=== PATIENT | male | born 1940 | race Caucasian/White ===

== ENCOUNTER 2020-06-22 06:00 | Outpatient (RCR) | payer MEDICARE, SELFPAY | END 2020-06-30 23:59 | disposition home or self-care (01) | LOC: TPT 06:00 | PROVIDERS: PCP Family Medicine; Visit Provider Family Medicine | DX: M53.3 Sacrococcygeal disorders, not elsewhere classified (principal) | CPT/HCPCS: 97161 ==

== ENCOUNTER 2020-06-27 09:42 | Outpatient (CLI) | payer MEDICARE, SELFPAY ==
--- NOTE | 2020-06-27 09:50 | USCV_ITS ---
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 Normal resting TBIs bilaterally CONCLUSIONS No significant arterial obstruction based on the above findings Dr Bob Caballero MD [facility] (Electronically Signed) Final Date: 28 June 2020 09:23 S
== END 2020-06-27 09:43 | disposition home or self-care (01) ==
PROVIDERS: PCP Family Medicine; Visit Provider Family Medicine
DX: I73.9 Peripheral vascular disease, unspecified (principal)
CPT/HCPCS: 93922

== ENCOUNTER 2020-07-01 06:00 | Outpatient (RCR) | payer MEDICARE, SELFPAY | END 2020-07-31 23:59 | disposition home or self-care (01) | LOC: TPT 06:00 | PROVIDERS: PCP Family Medicine; Visit Provider Family Medicine | DX: M53.3 Sacrococcygeal disorders, not elsewhere classified (principal) | CPT/HCPCS: 97110 ==

== ENCOUNTER 2020-07-12 12:29 | Outpatient (CLI) | payer MEDICARE, SELFPAY ==
--- NOTE | 2020-07-12 12:44 | XR_ITS ---
WS: [id number] LATERAL LUMBAR SPINE: 3 view. Lateral radiographs are performed in upright neutral, flexion and extension to the patient's toleranc e. HISTORY: POST LAMINECTOMY SYNDROME COMPARISON: 03/29/2015 Status post prior lumbar fusion from L3 to L5. No hardware fractures. Complete obliteration of the di sc at L3-4 and L4-5. The remaining discs are significantly narrowed with large osteophytes extending anterior. L2 retrolisthesis by 5 mm. No instability. Mild anterior wedging of T12. XR/XR lumbar spine f/e only [id number] IMPRESSION: 1. No lumbar spine instability. 2. Posterior lumbar fusion from L3 to L5 similar to prior studies. 3. Significant degenerative changes throughout the lumbar spine as described a bruce. Overall significant progression since 2014.
== END 2020-07-12 12:30 | disposition home or self-care (01) ==
PROVIDERS: PCP Family Medicine; Visit Provider Nurse Practitioner
DX: M96.1 Postlaminectomy syndrome, not elsewhere classified (principal); M43.26 Fusion of spine, lumbar region
CPT/HCPCS: 72120

== ENCOUNTER 2023-03-25 06:00 | Outpatient (RCR) | payer MEDICARE, SELFPAY | END 2023-03-30 23:59 | disposition home or self-care (01) | LOC: APT 06:00 | PROVIDERS: Visit Provider Family Medicine | DX: M54.50 Low back pain, unspecified (principal); G89.29 Other chronic pain | CPT/HCPCS: 97110; 97112; 97162; 97530 ==

== ENCOUNTER 2023-03-31 06:00 | Outpatient (RCR) | payer MEDICARE, SELFPAY | END 2023-04-30 23:59 | disposition home or self-care (01) | LOC: APT 06:00 | PROVIDERS: Visit Provider Family Medicine | DX: M54.50 Low back pain, unspecified (principal); G89.29 Other chronic pain | CPT/HCPCS: 97110; 97112; 97530 ==

== ENCOUNTER 2023-04-28 14:23 | Inpatient (IN) | payer MEDICARE, SELFPAY ==
[2023-04-28] VITALS (7 sets, daily range): BP systolic 100–138; BP diastolic 51–77; PULSE 57–115; RESP 15–19; TEMP 36.9–37.4; O2SAT 91–98; BMI 24.3
--- NOTE | 2023-04-28 15:05 | XRR_ITS ---
PROCEDURE INFORMATION: Exam: XR Chest Exam date and time: 04/28/2023 3:24 PM Age: 82 years old Clinical indication: Cough TECHNIQUE: Imaging protocol: Radiologic exam of the chest. Views: 1 view. COMPARISON: CR XR cervical spine 4-5V [id number] 06/22/2021 11:12 AM FINDINGS: Lungs: Unremarkable. No consolidation. Pleural spaces: Unremarkable. No pleural effusion. No pneumothorax. Heart/Mediastinum: Unremarkable. No cardiomegaly. Bones/joints: ACDF hardware noted in the lower cervical spine. [id number] dextroscoliosis of the thoracic spine. XR/XR chest 1V portable [id number] IMPRESSION: No acute findings.
--- NOTE | 2023-04-28 15:06 | ECG_ITS ---
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 Measurements Intervals [place] Rate: 111 P: 51 [place]: 161 QRS: 47 QRSD: 106 T: 60 QT: 314 QTc: 428 Interpretive Statements SINUS TACHYCARDIA WITH FREQUENT VENTRICULAR PREMATURE COMPLEXES IN A BIGEMINAL PATTERN POSSIBLE LEFT ATRIAL ENLARGEMENT [-0.1mV P-WAVE IN V1/V2] MODERATE T-WAVE ABNORMALITY, CONSIDER ANTEROLATERAL ISCHEMIA [-0.1+ mV T-WAVE IN V3-V6] No previous ECG available for comparison Electronically Signed On 04-29-2023 7:35:47 CDT by Lokesh Bush M.D. [id number]
--- NOTE | 2023-04-28 15:07 | ED_ITS ---
HPI - Fall General: Chief Complaint: Fall Stated Complaint: fall Time Seen by Provider: 04/28/23 14:35 Source: patient and family Limitations: no limitations History of Present Illness: This patient is here in the emergency room because he has felt weak over the past 3 to 4 days. He got out of bed yesterday and felt too weak and, collapsed to the floor without any injury. He had a similar episode today where he was got out of bed and was walking with his holding onto him and felt weak and she let him slowly collapsed to the floor without any injury. He denied any prodrome to include chest pain lightheadedness etc. He is states that he started feeling this way approximately Saturday or thereab where he just had decreased appetite malaise fitful sleep at some time and then increasing sleep at other times. He has not had a temperature over 99. He has had a nonproductive cough as well. No known association with anyone who has had infectious disease. He has not had influenza vaccine this year to date. His spouse had COVID in March but is currently asymptomatic. He normally does not have any cardiopulmonary disease. He has osteoarthritis as well as had cervical and lumbar fusions in the past. Place fall occurred: home Associated symptoms-after fall: Denies abdominal pain, chest pain, headache(s) or neck pain Review of Systems Const: Reports: body aches, change in appetite, malaise and change in sleep pattern; Denies: fever(s) Eyes: Denies: change in vision ENMT: Denies: throat pain, odynophagia, nasal discharge or nasal congestion Card: Denies: chest pain, palpitations, syncope or pre-syncope Resp: Reports: non-productive cough; Denies: wheezing GI: Reports: vomiting; Denies: abdominal pain or diarrhea : Denies: flank pain, difficulty urinating, dysuria or urinary frequency Musc: Denies: neck pain, back pain, extremity pain or extremity swelling Skin/Breast: Denies: rash Neuro: Denies: headache(s), numbness in extremities or weakness in extremities Physical Exam Narrative: EXAM NARRATIVE: He is alert makes good eye contact. Speech is fluent and goal-directed. Const: COMMON NORMALS: no acute distress, average body habitus, patient oriented x3, healthy appearing and alert GENERAL APPEARANCE: cooperative HENMT: COMMON NORMALS: normocephalic, Normal nasal mucous membranes and turbinates present, moist oral mucous membranes and oropharynx normal HEAD & SCALP: normal to inspection and normocephalic FACE & SINUS: normal facial exam NOSE: Normal nasal mucous membranes and turbinates present Eye: COMMON NORMALS: Equal, round and reactive pupils present, EOMs intact bilaterally and conjunctivae normal CONJUNCTIVA: Yes conjunctivae normal PUPIL: Yes Equal, round and reactive pupils present Neck/C-Spine: COMMON NORMALS: full ROM, no lymphadenopathy and no JVD Chest: COMMONS NORMALS: normal inspection of the chest Resp: COMMON NORMALS: normal respiratory effort, No retractions, No use of accessory muscles and clear to auscultation bilaterally AUSCULTATION: clear to auscultation bilaterally Cardio: COMMON NORMALS: no JVD, regular rate, regular rhythm, No murmurs p resent (Cardio) and Peripheral pulses 2+ throughout RATE: regular rate RHYTHM: regular rhythm PERIPHERAL PULSES: Peripheral pulses 2+ throughout GI: COMMON NORMALS: Normal to inspection, nondistended, normoactive bowel sounds present, Soft to palpation and non-tender PALPATION: Yes Soft to palpation : COMMON NORMALS: Yes no CVA tenderness BLADDER/KIDNEY EXAM: Yes no CVA tenderness Back/Pelvis: COMMON NORMALS: no CVA tenderness, thoracic and lumbar spine normal to inspection, no thoracic nor lumbar tenderness, thoraco-lumbar ROM normal and straight leg raise negative bilaterally Extremity: COMMON NORMALS: normal to inspection, full ROM, no joint enlargement, no clubbing, cyanosis or edema, no calf tenderness and no pedal edema Neuro: COMMON NORMALS: patient oriented x3, moves all extremities, no focal motor deficits and no sensory deficits noted SENSORIUM/ORIENTATION: Yes alert CRANIAL NERVES: Yes CN normal except as noted Psych: COMMON NORMALS: mental status grossly normal Skin: COMMON NORMALS: no rashes or lesions noted, no wounds and turgor normal GENERAL SKIN EXAM: no rashes or lesions noted and turgor normal Course Reevaluation(s): Reevaluation #1: Patient still does not endorse any ongoing chest pain or other symptoms other than that which were obtained at his intake evaluation. I informed both he and his spouse of his troponin elevation and the need for additional evaluation and inpatient care. They voiced understanding. Time: 15:56 Consultations: Consultation #1: Consulted with Dr. Pool regarding his presentation and need for admission. He requested a D-dimer but agreed with plan for admission. Time: 15:56 Vital Signs: Vital signs: Vital Signs Temperature 99.4 F 04/28/23 14:27 Pulse Rate 94 04/28/23 16:00 Respiratory Rate 15 04/28/23 14:27 Blood Pressure 127/71 04/28/23 16:00 Pulse Oximetry 98 04/28/23 16:00 Oxygen Delivery Me thod Room Air 04/28/23 14:27 MDM - Fall Medical Decision Making 82-year-old gentleman who presented to the emergency department with nonproductive cough history, generalized weakness and collapsing on a couple of separate occasions without injury. His had not been recently ill but did have COVID in March of this year. He has not had travel or known exposure to infectious disease. No significant cardiopulmonary history. Does have a his tory of degenerative spine disease. Because of his generalized malaise, nonproductive cough and generalized weakness work-up was undertaken to include evaluation for possible viral illness such as COVID and influenza, pneumonia, other potential contributing factors to a generalized weakness. Initial troponin was noted to be elevated in the 700 range with EKG that did not show acute changes but did show frequent unifocal PVCs. Chest x-ray did not reveal pneumonia and the initial remainder of his laboratories are reassuring and that he had no leukocytosis significant anemia abnormal renal function etc. The patient certainly has evidence of myocardial injury possibly from nonocclusive myocardial infarction. Less likely that he has a thromboembolic event as an etiology to his current presentation but a D-dimer was obtained and is pending at the time of this dictation. Consultation with hospitalist was obtained for admission. Lab Data I reviewed the patient's lab results. 04/28/23 15:14 04/28/23 15:14 Radiology Impressions Chest X-Ray 04/28/23 15:05 IMPRESSION: No acute findings. Laboratory Results WBC 8.87 10^3/uL (3.29-11.43) 04/28/23 15:14 RBC 4.25 10^6/uL (3.85-5.65) 04/28/23 15:14 Hgb 12.60 g/dL (11.27-16.99) 04/28/23 15:14 Hct 36.9 % (37-53) L 04/28/23 15:14 MCV 86.8 fl (82-101) 04/28/23 15:14 MCH 29.6 pg (27-33) 04/28/23 15:14 MCHC 34.1 g/dL (30-55) 04/28/23 15:14 RDW 15.0 % (12.1-15.1) 04/28/23 15:14 Plt Count 128 10^3/cmm (157-399) L 04/28/23 15:14 MPV 10.9 fL (7.4-10.4) H 04/28/23 15:14 Neut % (Auto) 83.7 % 04/28/23 15:14 Lymph % (Auto) 5.2 % 04/28/23 15:14 [place] % (Auto) 10.5 % 04/28/23 15:14 Eos % (Auto) 0.1 % 04/28/23 15:14 Baso % (Auto) 0.2 % 04/28/23 15:14 Neut # (Auto) 7.42 10^3/uL (1.8-7.7) 04/28/23 15:14 Lymph # (Auto) 0.5 10^3/uL (0.8-4.8) L 04/28/23 15:14 [place] # (Auto) 0.9 10^3/uL (0.2-0.9) 04/28/23 15:14 Eos # (Auto) 0.0 10^3/uL (0.0-0.8) 04/28/23 15:14 Baso # (Auto) 0.0 10^3/uL (0.0-0.1) 04/28/23 15:14 Nucleated RBC % (auto) 0 % 04/28/23 15:14 Nucleated RBCs # 0.0 /100WBC 04/28/23 15:14 D-Dimer 3.55 ug/mLFEU (0-0.59) H 04/28/23 15:14 Sodium 130 mmol/L (136-145) L 04/28/23 15:14 Potassium 3.9 mmol/L (3.5-5.1) 04/28/23 15:14 Chloride 100 mmol/L (98-107) 04/28/23 15:14 Carbon Dioxide 20 mmol/L (22-29) L 04/28/23 15:14 Anion Gap 13.9 (5-19) 04/28/23 15:14 BUN 28 mg/dL (8-23) H 04/28/23 15:14 Creatinine 1.3 mg/dL (0.7-1.2) H 04/28/23 15:14 GFR Calculation Not Reportable 04/28/23 15:14 Glucose 154 mg/dL (65-115) H 04/28/23 15:14 Calculated Osmolality 279 mOsm/kg (285-295) L 04/28/23 15:14 Lactic Acid 1.2 mmol/L (0.5-2.2) 04/28/23 15:14 Calcium 8.8 mg/dL (8.5-10.5) 04/28/23 15:14 Total Bilirubin 1.5 mg/dL (0.15-1.2) H 04/28/23 15:14 AST 64 U/L (0-40) H 04/28/23 15:14 ALT 55 U/L (0-41) H 04/28/23 15:14 Alkaline Phosphatase 151 U/L (40-130) H 04/28/23 15:14 Troponin T Baseline 753 ng/L (0-15) H* 04/28/23 15:14 Total Protein 6.0 g/dL (6.6-8.7) L 04/28/23 15:14 Albumin 3.6 g/dL (3.5-5.2) 04/28/23 15:14 Globulin 2.4 g/dL (1.3-4.6) 04/28/23 15:14 Urine Color Dark yellow (Yellow) 04/28/23 15:52 Urine Appearance Hazy (CLEAR) A 04/28/23 15:52 Urine pH 5 (5-7) 04/28/23 15:52 Ur Specific [place] 1.015 (1.005-1.030) 04/28/23 15:52 Urine Protein 1+ (Negative) H 04/28/23 15:52 Urine Glucose (UA) Norm (Normal) 04/28/23 15:52 Urine Ketones 1+ (Negative) H 04/28/23 15:52 Urine Blood 3+ (Negative) H 04/28/23 15:52 Urine Nitrate Negative (Negative) 04/28/23 15:52 Urine Bilirubin 1+ (Negative) H 04/28/23 15:52 Urine Urobilinogen 4 mg/dL (Negative) H 04/28/23 15:52 Ur Leukocyte Esterase 1+ (Negative) H 04/28/23 15:52 Urine RBC 0-4 /hpf (0-2) H 04/28/23 15:52 Urine WBC 0-4 /hpf (0-5) H 04/28/23 15:52 Ur Squamous Epith Cells None /hpf (0-5) 04/28/23 15:52 Amorphous Sediment 1+ /hpf 04/28/23 15:52 Urine Bacteria 1+ /hpf (NONE) H 04/28/23 15:52 Coarse Granular Casts 0-4 /lpf H 04/28/23 15:52 Influenza Type A Ag negative (Negative) 04/28/23 15:25 Influenza Type B Ag negative (Negative) 04/28/23 15:25 SARS-CoV-2 Ag (Rapid) Negative (Negative) 04/28/23 15:25 All radiology interpretation(s) finalized by discharge EKG Data EKG 1: I personally reviewed and interpreted this EKG as follows: Interpretation: Contemporaneous review of EKG reveals a ventricular rate of 111 bpm. Has normal CA interval, QRS duration, corrected QT interval. Leftward axis. Underlying rhythm appears to be sinus rhythm with frequent unifocal PVCs noted. Discharge Plan Discharge Patient Disposition: Admitted As Inpatient Clinical Impression: Myocardial injury, Generalized weakness Condition: Stable Coding Level of Care Code ED Welt Edge Rounder for Jeff Rios
[2023-04-28] MEDS: sodium chloride 0.9% 1,000 ML 999 ML IV (15:10)
[2023-04-28 15:23] LABS: Basophils % 0.2 %; Eosinophils % 0.1 %; Hematocrit 36.9 % (37-53); Lymphocytes # 0.5 10^3/uL (0.8-4.8); Lymphocytes % 5.2 %; Mean Corpuscular HGB Conc 34.1 g/dL (30-55); Mean Corpuscular Hemoglobin 29.6 pg (27-33); Mean Corpuscular Volume 86.8 fl (82-101); Mean Platelet Volume 10.9 fL (7.4-10.4); Monocytes # 0.9 10^3/uL (0.2-0.9); Monocytes % 10.5 %; Neutrophils # 7.42 10^3/uL (1.8-7.7); Neutrophils % 83.7 %; Nucleated Red Blood Cells % 0 %; Platelet Count 128 10^3/cmm (157-399); Red Blood Count 4.25 10^6/uL (3.85-5.65); White Blood Count 8.87 10^3/uL (3.29-11.43)
[2023-04-28 15:45] LABS: Lactic Sepsis W/Reflex 1.2 mmol/L (0.5-2.2)
[2023-04-28 15:46] LABS: Alanine Aminotransferase 55 U/L (0-41); Albumin Level 3.6 g/dL (3.5-5.2); Alkaline Phosphatase 151 U/L (40-130); Anion Gap 13.9 (5-19); Aspartate Amino Transferase 64 U/L (0-40); Blood Urea Nitrogen 28 mg/dL (8-23); Calcium 8.8 mg/dL (8.5-10.5); Carbon Dioxide 20 mmol/L (22-29); Chloride 100 mmol/L (98-107); Globulin 2.4 g/dL (1.3-4.6); Glucose 154 mg/dL (65-115); Osmolality Calculated 279 mOsm/kg (285-295); Potassium 3.9 mmol/L (3.5-5.1); Sodium 130 mmol/L (136-145); Total Bilirubin 1.5 mg/dL (0.15-1.2)
[2023-04-28 15:48] LABS: Troponin(5th) Baseline 753 ng/L (0-15)
[2023-04-28 15:52] LABS: Influenza A by IFA negative (Negative); Influenza B by IFA negative (Negative)
--- NOTE | 2023-04-28 15:54 | P.HP_ITS ---
Providers/Chief Complaint Chief Complaint: fall History of Present Illness Ursula Brown is a 82 year old male with history of depression, GERD, back surgery, uses a walker because of lower extremity weakness, presented today after sustaining a fall because of lower extremity weakness does not endorse any stroke related symptoms, patient is stating that he has not experienced any chest pain however mild discomfort was noticed around subcostal region and it was associate with nausea, no history of coronary disease CHF or [place], lives with his , non-smoker nonalcoholic. Takes lisinopril and amlodipine for blood pressure. In the ER he has been diagnosed with non-STEMI, no active chest pain, D-dimer extremely high requested CTA chest and venous Doppler along echo started ACS protocol. Review of Systems Const: Reports: chills, body aches and fatigue Eyes: Denies: change in vision ENMT: Denies: throat pain Card: Reports: pre-syncope; Denies: chest pain Resp: Denies: dyspnea GI: Denies: abdominal pain : Denies: flank pain or urinary frequency Musc: Denies: neck pain Skin/Breast: Denies: rash Neuro: Reports: weakness in extremities; Denies: headache(s) Medications/Allergies Home Medications Medication Instructions Recorded Confirmed Last Taken Type amlodipine 10 mg tablet 10 mg PO QAM 04/28/23 04/28/23 Unknown History azelastine 137 mcg (0.1 %) nasal 1 spray intranasal BID PRN Allergy 04/28/23 04/28/23 Unknown History spray aerosol Symptoms diphenhydramine 25 2 tab PO BEDTIME 04/28/23 04/28/23 Unknown History mg-acetaminophen 500 mg tablet (Tylenol PM Extra Strength) fluticasone propionate 50 2 spray intranasal DAILY PRN 04/28/23 04/28/23 Unknown History mcg/actuation nasal Allergy Symptoms spray,suspension lisinopril 40 mg tablet 40 mg PO QAM 04/28/23 04/28/23 Unknown History pantoprazole 40 mg tablet,delayed 40 mg PO BID 04/28/23 04/28/23 Unknown History release sertraline 100 mg tablet 150 mg PO BID 04/28/23 04/28/23 Unknown History Allergies Allergy/AdvReac Type Severity Reaction Status Date / Time No Known Allergies Allergy Verified 04/28/23 15:09 PFSH Acute PFSH: Medical History Depressed GERD (gastroesophageal reflux disease) HTN (hypertension) Surgical History History of back surgery Social History (Updated 04/28/23 @ 16:46 by Arya Oliveira MD) Smoking and tobacco/nicotine status: never used tobacco/nicotine Alcohol intake: never Substance/Drug Use: never Vitals/I&O/Wt Last Vital Signs Temp 99.4 F 04/28/23 14:27 Pulse 59 L 04/28/23 14:27 Resp 15 04/28/23 14:27 BP 122/60 04/28/23 14:27 Pulse Ox 95 04/28/23 14:27 O2 Del Method Room Air 04/28/23 14:27 Weight last 48 hrs Weight 77.111 kg Physical Exam Narrative: male Well-built GCS 15 No active chest pain Currently on room air Pleasant cooperative GCS 15 Nonfocal neuro exam No active wheezing or crackles S1, S2 Mild signs of fluid overload Data 04/28/23 15:14 04/28/23 15:14 A&P Assessment and plan (1) NSTEMI (non-ST elevated myocardial infarction): (2) Generalized weakness: (3) D-dimer, elevated: Plan Non-STEMI Start ACS protocol No active chest pain EKG without ischemic infarctive changes We will request a stress tomorrow In case patient develops any symptoms of chest pain stress test should be canceled We will request echo Abnormal D-dimer rule out PE/thromboembolic phenomenon request venous Doppler and CTA chest ALEXIS: Clinically patient looks euvolemic Hold lisinopril Hypertension: Continue amlodipine Hyponatremia with hypervolemia, will request echo Abnormal transaminases like related to congestive hepatopathy, BMP requested Request TSH and B12 because of generalized weakness Full code Cardiac diet N.p.o. after midnight Currently doing well on room air Attestations Medical Necessity Statement*: More than 2 midnights anticipated Diagnoses NSTEMI (non-ST elevated myocardial infarction) I21.4 Generalized weakness R53.1 D-dimer, elevated R79.89
[2023-04-28 16:04] LABS: Blood Urine 3+ (Negative); Glucose Urine UA Norm (Normal); Ketones Urine 1+ (Negative); Nitrate Urine Negative (Negative); Protein Urine 1+ (Negative); Specific Gravity, Urine 1.015 (1.005-1.030); Urine Appearance Hazy (CLEAR); Urine Color Dark Yellow (Yellow); pH Urine 5 (5-7)
[2023-04-28 16:05] LABS: Add Urine Culture? Yes; Add Urine Microscopic? YES; Amorphous Sediment Urine 1+ /hpf; Bacteria Urine 1+ /hpf; Bilirubin Urine 1+ (Negative); Coarse Granular Casts Urine 0-4 /lpf; Leukocyte Esterase Urine 1+ (Negative); RBC Urine 0-4 /hpf (0-2); Urobilinogen Urine 4 mg/dL (Negative); WBC Urine 0-4 /hpf (0-5)
[2023-04-28] MEDS: clopidogrel 300 mg Tablet PO (16:11)
[2023-04-28] MEDS: aspirin 325 mg EC Tablet PO (16:11)
[2023-04-28 16:12] LABS: SARS Covid-2 Antigen Negative (Negative)
[2023-04-28 16:27] LABS: D Dimer 3.55 ug/mLFEU (0-0.59)
--- NOTE | 2023-04-28 16:42 | PC.PHAR ---
pt states he takes care of his own medications-pt and pts states they dont remember if pt took his meds today or not
--- NOTE | 2023-04-28 16:43 | CTR_ITS ---
PROCEDURE INFORMATION: Exam: CTA Chest With Contrast Exam date and time: 04/28/2023 4:53 PM Age: 82 years old Clinical indication: Pain; Chest pressure; Additional info: Chest pain TECHNIQUE: Imaging protocol: Computed tomographic angiography of the chest with contrast. Exam focused on the arteries. 3D rendering (Not supervised by radiologist): MIP and/or 3D reconstructed images were created by the technologist. Radiation optimization: All CT scans at this facility use at least one of these dose optimization techniques: automated exposure control; mA and/or kV adjustment per patient size (includes targeted exams where dose is matched to clinical indication); or iterative reconstruction. Contrast material: OMNI 350; Contrast volume: 86 ml; Contrast route: INTRAVENOUS (IV); REPORTING DATA: Count of CT and Cardiac NM exams in prior 12 months: This patient has received 0 known CTs and 0 known cardiac nuclear medicine studies in the 12 months prior to the current study. COMPARISON: CR (CHEST, ) 04/28/2023 3:24 PM RADIATION DOSE METRICS: Total DLP (mGy-cm): 409.01 FINDINGS: Limitations: Study is somewhat limited by patient respiratory motion. Pulmonary arteries: Allowing for motion artifact and streak artifact at the lung bases there is no evidence of pulmonary embolism. Aorta: There is no thoracic aortic aneurysm or dissection. Lungs: There is mild dependent atelectasis at both lung bases. There is a somewhat ill-defined 13 x 17 x 9 mm nodular opacity left upper lobe seen on image number 9 series 5.For both low risk and high risk patients, consider CT Chest at 3 months, PET/CT, or biopsy. (Reference: Mildred). There is mild dependent atelectasis in both lungs. Pleural spaces: Unremarkable. No pneumothorax. No pleural effusion. Heart: Unremarkable. No cardiomegaly. No pericardial effusion. Coronary arteries: There is severe atherosclerotic calcification of the coronary arteries. Mediastinal space: There is moderate thickening of the esophagus throughout its length which may represent some esophagitis. Please correlate clinically. Lymph nodes: There are calcified right hilar lymph nodes in keeping with old granulomatous disease. Bones/joints: The thoracic spine demonstrates moderate degenerative changes at multiple levels. There is no evidence of acute fracture. Soft tissues: Unremarkable. CT/CT angio chest PE protcl [id number] IMPRESSION: 1. Indeterminate left upper lobe pulmonary nodule. Further evaluation or follow-up according to Fleischner society guidelines recommended. 2. No evidence of pulmonary embolism. 3. Severe coronary artery calcifications 4. Diffuse esophageal thickening. Please correlate for esophagitis or gastroesophageal reflux. REFERENCES: Mildred Thompson et al. Guidelines for Management of Incidental Pulmonary Nodules Detected on CT Images: From the Fleischner Society 2017. Radiology. 2017;284(1):228-243.
--- NOTE | 2023-04-28 16:44 | USR_ITS ---
PROCEDURE INFORMATION: Exam: US Duplex Lower Extremity Veins, Bilateral Exam date and time: 04/28/2023 6:35 PM Age: 82 years old Clinical indication: Edema, localized; Lower extremity, bilateral; Additional info: Swelling TECHNIQUE: Imaging protocol: Real-time duplex ultrasound of the bilateral extremities with 2-D cole scale, color Doppler flow and spectral waveform analysis including responses to compression and other maneuvers (when performed) with image documentation. Complete exam focused on the lower extremity veins. COMPARISON: No relevant prior studies available. FINDINGS: Right deep veins: Unremarkable. The common femoral, femoral, proximal profunda femoral and popliteal veins are patent without thrombus. Normal Doppler waveforms. Normal compressibility and/or augmentation response. Left deep veins: Unremarkable. The common femoral, femoral, proximal profunda femoral and popliteal veins are patent without thrombus. Normal Doppler waveforms. Normal compressibility and/or augmentation response. Superficial veins: Bilateral saphenofemoral junctions are patent without thrombus. Soft tissues: Unremarkable. US/[place] [id number] IMPRESSION: No evidence of deep vein thrombosis.
[2023-04-28] MEDS: iohexol 350 mg/mL 500 mL Btl (per mL) IV (16:58)
[2023-04-28 17:18] LABS: Vitamin B12 276 pg/mL (232-1245)
[2023-04-28 17:48] LABS: Troponin 5 2HR 710.5 ng/L (0-15)
--- NOTE | 2023-04-28 18:33 | ECG_ITS ---
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 Interpretive Statements NAME OF STUDY: LEXISCAN SESTAMIBI STRESS TEST INDICATION: [Unstable Angina, ] Procedure: At the baseline, the blood pressure was 96/55 mmHg with a heart rate of 99 bpm. The electrocardiogram showed normal sinus rhythm, with incomplete right bundle branch block. The Lexiscan was infused over a period of 20 seconds. A total of 0.4 mg of Lexiscan was infused. The stress phase was continued for a total of 5 minutes. Heart rate was at the end of stress phase was 103 bpm and a blood pressure of 104/51 mmHg. The EKG at the peak infusion revealed normal sinus rhythm with no significant ST-T wave changes. Sestamibi was injected 20 seconds after the Lexiscan infusion. Blood pressure at the end of recovery phase was 109/52 mmHg with a heart rate of 101 with bpm. Conclusion: 1. Normal EKG response to Lexiscan infusion 2. No Lexiscan induced chest pain or cardiac arrhythmia. 3. Normal blood pressure and heart rate response. 4. Sestamibi/sestamibi perfusion scan pending; see separate report. Electronically Signed On 05-04-2023 20:36:33 CDT by Lokesh Bush M.D. [email or web address])/store/[id number]
[2023-04-28 19:26] LABS: Thyroid Stimulating Hormone 0.99 uIU/mL (0.27-4.20)
[2023-04-28] MEDS: sertraline 100 mg Tablet 150 MG PO (19:44)
[2023-04-28] MEDS: enoxaparin 40 mg/0.4 mL Syringe 80 MG SUBCUT (19:44)
[2023-04-28] MEDS: pantoprazole DR 40 mg Tablet PO (19:44)
[2023-04-28 20:27] LABS: Estmated Average Glucose 131; Hemoglobin A1C 6.2 % (4.0-6.0)
--- NOTE | 2023-04-28 20:40 | ECG_ITS ---
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 Measurements Intervals [place] Rate: 98 P: 6 [place]: 176 QRS: 52 QRSD: 110 T: 0 QT: 383 QTc: 490 Interpretive Statements SINUS RHYTHM LOW QRS VOLTAGE IN EXTREMITY LEADS [QRS DEFLECTION < 0.5 mV IN LIMB LEADS] MODERATE T-WAVE ABNORMALITY, CONSIDER ANTEROLATERAL ISCHEMIA [-0.1+ mV T-WAVE IN V3-V6] Compared to ECG 04/28/2023 15:08:33 Low QRS voltage now present Sinus tachycardia no longer present Ventricular premature complex(es) no longer present T-wave abnormality still present Possible ischemia still present Electronically Signed On 04-29-2023 7:36:11 CDT by Lokesh Bush M.D. [id number]
[2023-04-28 22:16] LABS: Troponin 5 6HR 744.1 ng/L (0-15); Troponin 5 6HR Delta -8.9 ng/L (0-12)
[2023-04-29] VITALS (8 sets, daily range): BP systolic 107–146; BP diastolic 52–72; PULSE 73–108; RESP 16–20; TEMP 36.3–37.6; O2SAT 92–95
[2023-04-29 05:22] LABS: Basophils % 0.3 %; Eosinophils % 0.3 %; Hematocrit 33.8 % (37-53); Lymphocytes # 0.7 10^3/uL (0.8-4.8); Lymphocytes % 9.3 %; Mean Corpuscular HGB Conc 33.7 g/dL (30-55); Mean Corpuscular Hemoglobin 29.5 pg (27-33); Mean Corpuscular Volume 87.3 fl (82-101); Mean Platelet Volume 11.5 fL (7.4-10.4); Monocytes # 0.7 10^3/uL (0.2-0.9); Monocytes % 9.8 %; Neutrophils # 5.85 10^3/uL (1.8-7.7); Neutrophils % 79.6 %; Nucleated Red Blood Cells % 0 %; Platelet Count 121 10^3/cmm (157-399); Red Blood Count 3.87 10^6/uL (3.85-5.65); Red Cell Distribution Width 15.1 % (12.1-15.1); White Blood Count 7.34 10^3/uL (3.29-11.43)
[2023-04-29 05:53] LABS: Blood Urea Nitrogen 23 mg/dL (8-23); C Reactive Protein 229.8 mg/L (0.0-4.9); Calcium 8.4 mg/dL (8.5-10.5); Carbon Dioxide 18 mmol/L (22-29); Chloride 102 mmol/L (98-107); Glucose 94 mg/dL (65-115); Osmolality Calculated 279 mOsm/kg (285-295); Phosphorus 2.7 mg/dL (2.5-4.5); Sodium 133 mmol/L (136-145)
[2023-04-29 05:59] LABS: Anion Gap 16.7 (5-19); Potassium 3.7 mmol/L (3.5-5.1)
--- NOTE | 2023-04-29 06:00 | USCV_ITS ---
Ursula Brown Age: 82 Gender: M : 1940 Exam Date: 04/29/2023 19:16 Ordering Phys: Arya Oliveira MD Technologist: STEFANY Exam Location: [facility] [place] Indication: unstable angina. No history of cardiac intervention per patient. BP: 114 / 70 HR: 104 Rhythm: Sinus Technical Quality: Adequate MEASUREMENTS (Male / Female) Normal Values 2D ECHO LV Diastolic Diameter PLAX 3.8 cm 4.2 - 5.9 / 3.9 - 5.3 cm LV Systolic Diameter PLAX 2.4 cm IVS Diastolic Thickness 1.8 cm 0.6 - 1.0 / 0.6 - 0.9 cm IVS Systolic Thickness 2.0 cm LVPW Diastolic Thickness 1.8 cm 0.6 - 1.0 / 0.6 - 0.9 cm LVPW Systolic Thickness 1.9 cm LVOT Diameter 2.2 cm LV Ejection Fraction 2D Teich 67.8 % LV Ejection Fraction MOD 2C 30.9 % LV Ejection Fraction 2C AL 30.6 % LA Diameter 3.5 cm LA Width 3.7 cm LA Height 4.0 cm RA Width 3.2 cm RA Height 3.2 cm Aorta at Sinotubular Diameter 3.1 cm IVC Diameter 2.0 cm M-MODE Aortic Annulus Diameter 3.3 cm LA Ao Ratio MM 1.1 MV E Point Septal Separation 1.1 cm DOPPLER AV Peak Velocity 122.0 cm/s LVOT Peak Velocity 63.0 cm/s AV Area Cont Eq vti 1.6 cm squared AV Area Cont Eq pk 2.0 cm squared MV Peak Velocity 125.0 cm/s MV Area PHT 5.6 cm squared Mitral E to A Ratio 0.8 MV E' Velocity 53.0 cm/s Mitral E to MV E' Ratio 11.8 Mitral E to LV E' Lateral Ratio 12.6 Mitral E to LV E' Septal Ratio 11.3 TR Peak Velocity 262.0 cm/s TR Peak Gradient 27.5 mmHg TV Peak E Velocity 47.0 cm/s Right Atrial Pressure 5.0 mmHg Pulmonary Artery Systolic Pressu 32.5 mmHg PV Peak Velocity 84.0 cm/s RV Acceleration Time 0.1 s RV Ejection Time 0.3 s RV AcT/ET 0.4 FINDINGS Left Ventricle Left ventricle is normal in size. LV systolic function is severely reduced with EF of 25 to 30%. Akinesis of apical, mid to apical anteroseptal and mid to apical inferoseptal portillo. Possible apical thromus. Grade 1 diastolic dysfunction Right Ventricle Grossly normal Right Atrium Normal in size Left Atrium Normal in size Mitral Valve Grossly normal. Mild mitral regurgitation Aortic Valve Aortic valve is thickened. No significant stenosis or regurgitation. Tricuspid Valve Insufficient TR jet to calculate RVSP Pulmonic Valve Not well visualized. Trace pulmonic regurgitation. Pericardium Normal Aorta Normal in size IVC Appears to be normal CONCLUSIONS Systolic function is severely reduced with EF of 25 to 30%. Above-mentioned regional wall motion abnormalities. Possible apical thrombus seen. Grade 1 diastolic dysfunction. Mild mitral regurgitation. Trace pulmonic regurgitation. No comparison studies are available. Lokesh Bush MD (Electronically Signed) Final Date: 30 April 2023 09:22 S
[2023-04-29] MEDS: amlodipine 10 mg Tablet PO (06:24)
[2023-04-29] MEDS: enoxaparin 40 mg/0.4 mL Syringe 80 MG SUBCUT ×2 (06:24→17:10)
[2023-04-29] MEDS: clopidogrel 75 mg Tablet PO (10:00)
[2023-04-29] MEDS: aspirin 81 mg EC Tablet PO (10:00)
[2023-04-29] MEDS: pantoprazole DR 40 mg Tablet PO ×2 (10:00→17:11)
[2023-04-29] MEDS: sennosides-docusate Tablet 1 TAB PO (10:01)
[2023-04-29] MEDS: sertraline 100 mg Tablet 150 MG PO ×2 (10:01→17:11)
[2023-04-29] MEDS: FUROsemide 10 mg/mL SDV 2mL 20 MG IVP (10:01)
--- NOTE | 2023-04-29 11:21 | P.PN_ITS ---
Subjective Subjective: No active chest pain PT evaluation pending B12 low normal D-dimer 3.5 No sign of DVT or PE Stress test report pending TSH normal B12 low normal finding discussed with the patient Vitals/I&O/Wt Last Vital Signs Temp 99.7 F H 04/29/23 10:57 Pulse 108 H 04/29/23 10:57 Resp 16 04/29/23 10:57 BP 135/72 04/29/23 10:57 Pulse Ox 92 04/29/23 10:57 O2 Del Method Room Air 04/29/23 10:57 04/28/23 04/29/23 04/29/23 22:59 06:59 14:59 Intake Total 1000 / 1000 Output Total 150 / 150 450 / 600 800 / 800 Balance 850 / 850 -450 / 400 -800 / -800 Weight last 48 hrs Weight 77.111 kg Physical Exam Narrative: Awake and alert Chest pain-free Hemodynamic stable Currently on room air pleasant cooperative Mild signs of fluid overload Abdomen soft Nonfocal neuro exam S1, S2 Data 04/29/23 04:21 04/29/23 04:21 Micro: Microbiology 04/28/23 15:52 Urine Culture - Final Urine,Clean Catch A&P Assessment and plan (1) D-dimer, elevated: (2) NSTEMI (non-ST elevated myocardial infarction): (3) Myocardial injury: (4) Generalized weakness: (5) Low vitamin B12 level: Plan Generalized weakness related to vitamin B12 low normal values We will give him a intramuscular injection TSH is normal requested PT Non-STEMI: Continue ACS protocol Chest pain-free No active chest pain EKG without ischemic infarctive changes Stress test today We will follow-up with echo report Patient has history of back pain No acute exacerbation no signs of cauda equina Patient is agreeable to go to rehab if that is needed Continue antihypertensive regimen Full code Cardiac diet DVT prophylaxis on board Attestations Medical Necessity Statement*: Continue medical management patient will need to stay until he finishes his ACS protocol Coding Level of Care Code 59087 Moderate MDM includes number and complexity of problems actively addressed during encounter, amount and/or complexity of data reviewed/ordered and described risk of complication, morbidity or mortality of management as docume nted Diagnoses D-dimer, elevated R79.89 NSTEMI (non-ST elevated myocardial infarction) I21.4 Myocardial injury I5A Generalized weakness R53.1 Low vitamin B12 level R79.89
--- NOTE | 2023-04-29 12:33 | PC.SOCIAL ---
PG 2 IMM Explained to pt & his Pg 2 IMM. No questions voiced. Provided pt a copy. Initialed, dated, & timed a copy & placed in chart.
[2023-04-29] MEDS: regadenoson 0.4 Mg/5 ml Syringe IVP (12:40)
--- NOTE | 2023-04-29 18:33 | NMCV_ITS ---
NM narayan perf SPECT r/s* [id number] Ursula Brown Age: 82 Gender: M : 1940 Exam Date: 04/29/2023 11:59 Ordering Phys: Arya Oliveira MD Technologist: CATHY Blackburn Exam Location: [facility] Indications: CHEST PAIN STRESS TEST Please see separate stress test report in [facility] for full findings IMAGE PROTOCOL Rest/Stress 1 Lexiscan Day Radiopharmaceutical Dose (mCi) Administration Site Administered by Rest: Tc-99m 10.6 IV CATHY Blackburn Sestamibi Stress:Tc-99m 32.9 IV CATHY Guzmán Sestamibi Rest: 29-Apr-2023 60 Discovery 630 Stress: 29-Apr-2023 30 Discovery 630 0.4mg Lexiscan. Images obtained in supine and prone position. SPECT RESULTS Technical Quality: Excellent Raw Data Analysis: Normal Image Corrections: No attenuation or motion correction applied Summed Stress Score: 20 Summed Rest Score: 18 Summed Difference Score: 6 PERFUSION FINDINGS There is a large sized, mostly reversible perfusion defect noted in apical, apical septal and apical anterior portillo. This is consistent with large sized prior infarct with significant fidelia-infarct ischemia in LAD territory. There is large sized partially perfusion perfusion defect noted in inferior and inferolateral portillo. This is consistent with large sized area of prior infarct with significant fidelia-infarct ischemia in RCA and left circumflex artery territories FUNCTIONAL RESULTS (calculated via Gated SPECT) Stress Image LV EF (%): 38 Stress EDV (mL):143 TID: 1.14 Stress ESV (mL):88 FUNCTIONAL FINDINGS: LV systolic function is moderate to severely reduced with EF of 38% IMPRESSIONS 1. Abnormal myocardial perfusion imaging with large sized area of prior infarct with significant fidelia-infarct ischemia seen in LAD territory. 2. Large area of prior infarct with significant fidelia-infarct ischemia seen in RCA and left circumflex artery territories. 3. LV systolic function is moderate to severely reduced with EF of 38% Lokesh Bush MD (Electronically Signed) Final Date: 29 April 2023 18:09 S
[2023-04-30] VITALS (18 sets, daily range): BP systolic 97–149; BP diastolic 62–80; PULSE 87–114; RESP 13–21; TEMP 36.4–36.8; O2SAT 92–96
--- NOTE | 2023-04-30 02:00 | ECG_ITS ---
[facility] Test Date: 2023-04-30 Pat Name: Ursula Brown Department: Room: 250 Gender: Male [employer]: : 1940 Requested By: Tanisha Joyce Order Number: [id number] Anastasiya MD: Liliana Macias M.D. Measurements Intervals Foley Rate: 115 P: 49 NJ: 160 QRS: 43 QRSD: 116 T: 50 QT: 346 QTc: 479 Interpretive Statements Possibly SINUS TACHYCARDIA WITH FREQUENT VENTRICULAR PREMATURE COMPLEXES POSSIBLE LEFT ATRIAL ENLARGEMENT [-0.1mV P-WAVE IN V1/V2] MODERATE INTRAVENTRICULAR CONDUCTION DELAY [110+ ms QRS DURATION] MODERATE T-WAVE ABNORMALITY, CONSIDER ANTEROLATERAL ISCHEMIA [-0.1+ mV T-WAVE IN V3-V6] Compared to ECG 04/28/2023 20:40:41 Ventricular premature complex(es) now present Intraventricular conduction delay now present Sinus rhythm no longer present T-wave abnormality still present Possible ischemia still present Electronically Signed On 04-30-2023 17:47:24 CDT by Liliana Macias M.D. [id number]
--- NOTE | 2023-04-30 02:14 | XRR_ITS ---
PROCEDURE INFORMATION: Exam: XR Chest Exam date and time: 04/30/2023 2:53 AM Age: 82 years old Clinical indication: Shortness of breath; Prior surgery; Surgery date: 6+ months; Surgery type: Cervical fusion; Patient HX: SOB. Diaphoretic upon exam. ; Additional info: Pulmonary edema TECHNIQUE: Imaging protocol: Radiologic exam of the chest. Views: 1 view. COMPARISON: CR (CHEST, ) 04/28/2023 3:24 PM FINDINGS: Lungs: Low lung volumes. Prominent increased interstitial lung markings bilaterally. No focal pulmonary consolidation. Pleural spaces: Unremarkable. No pleural effusion. No pneumothorax. Heart/Mediastinum: Unremarkable. No cardiomegaly. Bones/joints: ACDF. Negative for fracture. XR/XR chest 1V portable [id number] IMPRESSION: Interstitial prominence increased from comparison may indicate interstitial edema.
[2023-04-30] MEDS: FUROsemide 10 mg/mL SDV 2mL 20 MG IVP ×2 (02:28→11:24)
[2023-04-30 05:57] LABS: Anion Gap 18.3 (5-19); Blood Urea Nitrogen 30 mg/dL (8-23); Calcium 8.8 mg/dL (8.5-10.5); Carbon Dioxide 19 mmol/L (22-29); Chloride 97 mmol/L (98-107); Glucose 139 mg/dL (65-115); Osmolality Calculated 280 mOsm/kg (285-295); Potassium 3.3 mmol/L (3.5-5.1); Sodium 131 mmol/L (136-145)
[2023-04-30] MEDS: amlodipine 10 mg Tablet PO (06:29)
[2023-04-30] MEDS: enoxaparin 40 mg/0.4 mL Syringe 80 MG SUBCUT ×2 (06:29→17:45)
[2023-04-30] MEDS: sertraline 100 mg Tablet 150 MG PO ×2 (09:52→17:44)
[2023-04-30] MEDS: aspirin 81 mg EC Tablet PO (09:52)
[2023-04-30] MEDS: pantoprazole DR 40 mg Tablet PO ×2 (09:52→17:44)
[2023-04-30] MEDS: clopidogrel 75 mg Tablet PO (09:52)
--- NOTE | 2023-04-30 11:38 | P.PN_ITS ---
Subjective Subjective: Cardiology consulted We will make him n.p.o. after midnight Stress test report and echo results shared with the patient Patient also has left apical thrombus Currently on ACS protocol with therapeutic Lovenox Patient was given extra dose of Lasix for worsening of labored breathing last night X-ray showing interstitial edema Vitals/I&O/Wt Last Vital Signs Temp 97.5 F L 04/30/23 07:34 Pulse 87 04/30/23 10:25 Resp 18 04/30/23 10:25 BP 116/63 04/30/23 07:34 Pulse Ox 95 04/30/23 10:25 O2 Del Method Nasal Cannula 04/30/23 10:25 O2 Flow Rate 2 04/30/23 10:25 04/29/23 04/30/23 04/30/23 22:59 06:59 14:59 Intake Total 840 / 840 840 / 1680 240 / 240 Output Total 450 / 1250 400 / 1650 Balance 390 / -410 440 / 30 240 / 240 Weight last 48 hrs Weight 77.111 kg Physical Exam Narrative: Currently patient is on 2 L S1, S2 Awake and alert Family at the bedside Pleasant and cooperative Mild signs of fluid overload Pleasant cooperative GCS 15 Abdomen soft Data 04/29/23 04:21 04/30/23 04:16 Micro: Microbiology 04/28/23 15:52 Urine Culture - Final Urine,Clean Catch A&P Assessment and plan (1) Low vitamin B12 level: (2) D-dimer, elevated: (3) NSTEMI (non-ST elevated myocardial infarction): (4) Myocardial injury: (5) Generalized weakness: (6) Left ventricular apical thrombus: (7) Acute exacerbation of CHF (congestive heart failure): (8) Hypoxia: Plan Acute systolic CHF exacerbation Continue IV Lasix patient required oxygen, interstitial edema noted on x-ray Currently requiring 2 L Was not using oxygen at home Left apical thrombus continue therapeutic Lovenox Non-STEMI: Patient has been kept on ACS protocol since admission Case discussed with Dr. Bush, plan for angiogram tomorrow morning at 830 N.p.o. after midnight GERD: Esophagitis noted continue Protonix 40 p.o. twice daily Hypertension: Discontinue amlodipine e, blood pressure 116/63 this morning, continue Lasix Chronic kidney disease creatinine seems to be stable at 1.3 Low vitamin B12 we will give him vitamin B12 IM injection Full code PT evaluation is pending Agreeable to go to rehab if needed Attestations Medical Necessity Statement*: Angiogram 830 tomorrow Diagnoses Low vitamin B12 level R79.89 D-dimer, elevated R79.89 NSTEMI (non-ST elevated myocardial infarction) I21.4 Myocardial injury I5A Generalized weakness R53.1 Left ventricular apical thrombus I51.3 Acute exacerbation of CHF (congestive heart failure) I50.9 Hypoxia R09.02
--- NOTE | 2023-04-30 11:40 | PM.CONSULT ---
Providers/Reason For Consult Consulting Physician/Specialty*: Lokesh Bush MD/ Cardiology Reason for Consult*: NSTEMI/abnormal stress test/ LV dysfunction Requesting Physician: Dr Oliveira Attending Physician: Arya Oliveira MD History of Present Illness History of Present Illness Ursula Brown is a 82 year old male with past medical history of hypertension presented to hospital with extreme weakness and fall. Has some dyspnea. He was found to have very high troponins over 700 however did not trend up significantly. Echo showed severely reduced LV systolic function with possible LV thrombus. He had a stress test that is abnormal showing prior infarcts with significant fidelia-infarct ischemia in all 3 coronary artery territories. Review of Systems Const: Reports: chills, body aches and fatigue Eyes: Denies: change in vision ENMT: Denies: throat pain Card: Reports: pre-syncope; Denies: chest pain Resp: Reports: dyspnea GI: Denies: abdominal pain : Denies: flank pain or urinary frequency Musc: Denies: neck pain Skin/Breast: Denies: rash Neuro: Reports: weakness in extremities; Denies: headache(s) Medications/Allergies Home Medications Medication Instructions Recorded Confirmed Last Taken Type amlodipine 10 mg tablet 10 mg PO QAM 04/28/23 04/28/23 Unknown History azelastine 137 mcg (0.1 %) nasal 1 spray intranasal BID PRN Allergy 04/28/23 04/28/23 Unknown History spray aerosol Symptoms diphenhydramine 25 2 tab PO BEDTIME 04/28/23 04/28/23 Unknown History mg-acetaminophen 500 mg tablet (Tylenol PM Extra Strength) fluticasone propionate 50 2 spray intranasal DAILY PRN 04/28/23 04/28/23 Unknown History mcg/actuation nasal Allergy Symptoms spray,suspension lisinopril 40 mg tablet 40 mg PO QAM 04/28/23 04/28/23 Unknown History pantoprazole 40 mg tablet,delayed 40 mg PO BID 04/28/23 04/28/23 Unknown History release sertraline 100 mg tablet 150 mg PO BID 04/28/23 04/28/23 Unknown History Allergies Allergy/AdvReac Type Severity Reaction Status Date / Time No Known Allergies Allergy Verified 04/28/23 15:09 Current Medications Generic Name Dose Route Start Last Admin Trade Name Freq PRN Reason Stop Dose Admin Amlodipine Besylate 10 mg 04/29/23 06:00 04/30/23 06:29 Amlodipine 10 Mg Tablet PO 10 mg QAM PRADIP Administration Aspirin 81 mg 04/29/23 09:00 04/30/23 09:52 Aspirin 81 Mg Ec Tablet PO 81 mg DAILY PRADIP Administration Clopidogrel Bisulfate 75 mg 04/29/23 09:00 04/30/23 09:52 Clopidogrel 75 Mg Tablet PO 75 mg DAILY PRADIP Administration Enoxaparin Sodium 80 mg 04/28/23 18:33 04/30/23 06:29 Enoxaparin 40 Mg/0.4 Ml Syringe SUBCUT 80 mg Q12H PRADIP Administration Furosemide 20 mg 04/29/23 09:00 04/30/23 11:24 Furosemide 10 Mg/Ml Sdv 2ml IVP 20 mg Q24H PRADIP Administration Pantoprazole Sodium 40 mg 04/28/23 18:33 04/30/23 09:[address] 40 Mg Tablet PO 40 mg BID PRADIP Administration Senna/Docusate Sodium 1 tab 04/29/23 09:00 04/30/23 09:51 Sennosides-Docusate Tablet PO Not Given DAILY PRADIP Sertraline HCl 150 mg 04/28/23 18:33 04/30/23 09:52 Sertraline 100 Mg Tablet PO 150 mg BID PRADIP Administration PFSH Acute PFSH: Medical History (Updated 05/01/23 @ 08:54 by Lokesh Bush M.D) Depressed GERD (gastroesophageal reflux disease) HTN (hypertension) Surgical History History of back surgery Social History Smoking and tobacco/nicotine status: never used tobacco/nicotine Alcohol intake: never Substance/Drug Use: never Vitals/I&O/Wt Last Vital Signs Temp 97.5 F L 04/30/23 07:34 Pulse 87 04/30/23 10:25 Resp 18 04/30/23 10:25 BP 116/63 04/30/23 07:34 Pulse Ox 95 04/30/23 10:25 O2 Del Method Nasal Cannula 04/30/23 10:25 O2 Flow Rate 2 04/30/23 10:25 04/29/23 04/30/23 04/30/23 22:59 06:59 14:59 Intake Total 840 / 840 840 / 1680 240 / 240 Output Total 450 / 1250 400 / 1650 Balance 390 / -410 440 / 30 240 / 240 Weight last 48 hrs Weight 170 lb Physical Exam Narrative: GENERAL: Patient is alert, awake and oriented x3. [] NECK: No jugular vein distension. [] HEENT: No cyanosis. No icterus. No pallor. [] HEART: Regular S1 and S2. Grade 2/6 systolic function LUNGS: Clear to auscultate bilaterally. [] CENTRAL NERVOUS SYSTEM: Grossly nonfocal. [] EXTREMITIES: Lower extremities with 1+ edema bilaterally. Data 05/01/23 04:11 05/01/23 04:11 Micro: Microbiology 04/28/23 15:52 Urine Culture - Final Urine,Clean Catch A&P Assessment and plan (1) NSTEMI (non-ST elevated myocardial infarction): (2) Acute exacerbation of CHF (congestive heart failure): (3) Left ventricular apical thrombus: (4) HTN (hypertension): Plan Patient has presented with NSTEMI, LV dysfunction and has abnormal stress test. We will proceed with coronary angiogram with possible percutaneous coronary intervention. Risks and benefits of the procedure have been discussed. He understands the risks and wants to proceed. Continue aspirin and Plavix. He has possible LV thrombus. Continue anticoagulation with Lovenox for now. NPO past midnight. Thank you for involving us with care of this patient. We will continue to follow. Please call with questions. Consult Attestations Medical Necessity Statement: Care expected to cross 2 midnights. Coding Level of Care Code Acute Code for [facility] Fwd Diagnoses NSTEMI (non-ST elevated myocardial infarction) I21.4 Acute exacerbation of CHF (congestive heart failure) I50.9 Left ventricular apical thrombus I51.3 HTN (hypertension) I10
[2023-04-30] MEDS: morphine IR 15 mg Tablet PO (17:44)
[2023-05-01] VITALS (51 sets, daily range): BP systolic 105–127; BP diastolic 61–86; PULSE 86–116; RESP 10–28; TEMP 36.7–37.1; O2SAT 89–99
[2023-05-01 05:03] LABS: Basophils % 0.3 %; Eosinophils # 0.1 10^3/uL (0.0-0.8); Eosinophils % 0.4 %; Hematocrit 36.1 % (37-53); Lymphocytes # 0.6 10^3/uL (0.8-4.8); Lymphocytes % 4.9 %; Mean Corpuscular HGB Conc 33.8 g/dL (30-55); Mean Corpuscular Hemoglobin 29.4 pg (27-33); Mean Platelet Volume 11.2 fL (7.4-10.4); Monocytes # 0.6 10^3/uL (0.2-0.9); Monocytes % 5.3 %; Neutrophils # 10.58 10^3/uL (1.8-7.7); Neutrophils % 88.5 %; Nucleated Red Blood Cells % 0 %; Platelet Count 142 10^3/cmm (157-399); Red Blood Count 4.15 10^6/uL (3.85-5.65); Red Cell Distribution Width 15.2 % (12.1-15.1); White Blood Count 11.96 10^3/uL (3.29-11.43)
[2023-05-01 05:25] LABS: Anion Gap 17.3 (5-19); Blood Urea Nitrogen 33 mg/dL (8-23); Calcium 8.5 mg/dL (8.5-10.5); Carbon Dioxide 20 mmol/L (22-29); Chloride 98 mmol/L (98-107); Glucose 128 mg/dL (65-115); Osmolality Calculated 283 mOsm/kg (285-295); Potassium 3.3 mmol/L (3.5-5.1); Sodium 132 mmol/L (136-145)
--- NOTE | 2023-05-01 06:07 | PC.NURSE ---
Spoke with parviz in crime lab analyst and verified to give the 80mg lovenox this am prior to cath.
[2023-05-01] MEDS: enoxaparin 40 mg/0.4 mL Syringe 80 MG SUBCUT (06:11)
--- NOTE | 2023-05-01 08:07 | XACV_ITS ---
Exam Room: [facility] Ht: 178 cm Wt: 77 kg BSA: 1.96 m2 Gender: Male : 1940 Any Known Allergies: No known allergies Exam Priority: Routine Procedure(s): Procedure Description: Diagnostic procedure Procedure Description: PCI procedure Procedure Description: Drug Eluting Coronary Stent Procedure Description: PTCA Diagnostic Cath Status: Elective Diagnostic Findings * INDICATION: NSTEMI/ LV dysfucntion. * Circumflex appears to be totally occluded ostially as not visualized. * Mid Left Anterior Descending: severe 70-80% stenosis, KELLI: 3 flow. * Distal Right Coronary Artery: subtotal occlusion, KELLI: 2 flow. Heavily calcified vessel. * Left Main: minimal 30% stenosis, KELLI: 3 flow. * Proximal Left Anterior Descending: minimal 30% stenosis, KELLI: 3 flow. * Distal Left Anterior Descending: obstructive 70% stenosis, KELLI: 3 flow. * Mid Right Coronary Artery to Distal Right Coronary Artery: significant 80% stenosis, KELLI: 3 flow. * Coronary angiography shows right dominance. PCI Status: Elective PCI Indication: NSTE - ACS Interventional Findings * Mid Left Anterior Descendin% stenosis treated with a 2.5X12 balloon, and MDT R WANDA 2.5X15 MARIBETH. 0% residual stenosis, KELLI: 3 flow. * Procedure detail: We engaged the left main artery with XB 3.5 guide catheter. IV heparin was administered to maintain anticoagulation. 0.014 run-through guidewire was used to cross the mid and distal vessel stenosis and was put in distal LAD. We first placed 2.5 x 12 mm resolute Wanda drug-eluting stent in distal LAD. This was followed by predilation of proximal to mid vessel stenosis with distal LAD stent balloon. We then placed a 2.5 x 15 mm resolute [place] drug-eluting stent. At this time final angiogram was performed that showed excellent stent expansion, no residual stenosis and KELLI-3 flow. Guidewire and guide catheter were removed. Patient left the Apigee Developer in a stable condition.. * Distal Left Anterior Descendin% stenosis treated with a MDT R WANDA 2.5X12 MARIBETH. 0% residual stenosis, KELLI: 3 flow. Conclusions 1. Severe multivessel CAD. Status post successful revascularization of proximal to mid and distal LAD 2. with 2 stents. RCA has complex lesions. We will plan on staged PCI of mid RCA and distal RCA and 2 to 3 days.. 3. Mid Left Anterior Descending was treated with a Drug Eluting Stent, and Drug Eluting Stent. 4. Distal Left Anterior Descending was treated with a Drug Eluting Stent. Recommendations * Dual antiplatelet therapy and anticoagulation to continue for now. At time of discharge can send home on plavix and eliquis. * Staged PCI of rca in 1-2 days. * Transfer to cardiac stepdown unit. Interventional RX Recommendation: PCI w/o planned CABG Diagnostic RX Recommendation: PCI w/o planned CABG Anticoagulation: Heparin Pressures Phase:Rest AO : 95 / 47 ( 61 ) @ 10:05:00 AM 77 / 52 ( 64 ) @ 10:08:00 AM 84 / 58 ( 72 ) @ 10:10:00 AM 76 / 55 ( 67 ) @ 10:36:00 AM 84 / 47 ( 64 ) @ 10:39:00 AM 75 / 54 ( 64 ) @ 10:42:00 AM 86 / 47 ( 65 ) @ 10:46:00 AM Clinical Evaluation EBL: 5mL-10mL Procedural Details Pre-Procedure Time Out. Identified patient by full name and date of as verbalized by the patient/guarantor. Does the consent match the physician's order: Yes. Accurate & Complete Informed Consent: Yes. Inpatient/Outpatient History & Physical on Chart: Yes. If H&P is completed, is and addenduem needed: No; If yes, is the addendum complete: N/A. Visualize and Verify Site with Patient/Guarantor: N/A. Relevant Radiology Images available: Yes. Pre-op teaching completed and patient verbalized understanding. The risks, benefits, and alternatives of sedation and/or procedure were discussed by physician. The patient agrees to continue. Procedure started. Current Diagnosis : NSTEMI. [facility] Clinical Fraility Score: 4: Vulnerable. Apigee Developer Indications: ACS > 24 hours. Chest Pain Symptom Assessment: Atypical Angina. Correct patient, site and procedure confirmed by cath team. Current diagnosis: NSTEMI. PERRLA. Strong, equal hand animal ecologist bilaterally. Lungs clear x 5 lobes. IV Site on Arrival: 18 gauge in the left anticubital. IV Fluids: 0.9% NaCl at KVO. 0 mL infused prior to kiln labourer. Oxygen started at 2liters/min via nasal canula. right groin was prepped with chloroprep then draped in the usual sterile fashion. right radial was prepped with chloroprep then draped in the usual sterile fashion. Baseline sample Acquired. HR: 103 BPM. Physician arrived. Physician scrubbed in. Immediate Pre-Procedure Time Out. Correct Patient: Yes; Correct Procedure: Yes; Correct Site: Yes; Correct Patient Position: Yes; Correct Supplies: Yes; Dried Flammable Prep: Yes; Blood Products Available: N/A;. Lidocaine 1% infiltrated to the right radial. Arterial access obtained. A 5 belarusian TIG catheter in over wire. Multiple views taken of right coronary artery. Catheter redirected to the LCA. Multiple views taken of left coronary artery. Catheter removed over the exchange wire. Physician review of cine films. 6 belarusian XB 3.5 guide catheter was inserted over the wire. Guide catheter out. [place] guidewire was advanced through the guide catheter to lesion in the mid LAD. Inflation Number : 1 A MDT R WANDA 2.5X12 MARIBETH -Lot Number# _[id number] EXP: 10/30/2024 was prepped and advanced across the Dist LAD. The stent was deployed at 12 VASILE for 0:22 seconds. Inflation number: 1 The stent balloon was then re-inflated across the Mid LAD to 12 VASILE for 0:20 seconds. Stent balloon out over wire. Inflation Number : 2 A MDT R WANDA 2.5X15 MARIBETH -Lot Number# _[id number] EXP: 07/31/2024 was prepped and advanced across the Mid LAD. The stent was deployed at 12 VASILE for 0:18 seconds. Stent balloon out over wire. Results checked. Wire out. Guide catheter out. A TR Band was successful obtaining hemostatsis at the Right Radial artery insertion site. Vital chart was stopped. Post Procedure: Pulses reassessed and unchanged. PERRLA. Strong, equal hand animal ecologist bilaterally. No VTE prophylaxis required. Medication's Wasted: Lidocaine 1% = 1 mL. Medication's Wasted: Nitro = 49.6 mcg. Medication's Wasted: Heparin = 1000 units. Medication's Wasted: Other = Fentanyl 50 mcg. Total IV fluids: 80 mL. Complications: None. Estimated blood loss: 5mL-10mL. Responsiveness - Normal response to verbal stimuli; alert and oriented, PERRLA. Airway - Unaffected, no intervention required; spontaneous ventilation. Circulation: W/N/L, pulses unchanged. Nausea/Vomiting: No. Procedure completed. Patient transferred by stretcher to CPRU. Access Site Site: Right Radial artery Sheath Size: 6 Fr Hemostasis Method: TR Band Hemostasis Success: Successful Procedure Medications Start: 8:47 AM Stop: 8:47 AM Medication: Versed 1 mg and Fentanyl 25 mcg Amount: 1 Route: I.V. Start: 9:03 AM Stop: 9:03 AM Medication: Nitrogylcerin Amount: 200 mcg Route: I.A. Start: 9:26 AM Stop: 9:26 AM Medication: Nitrogylcerin Amount: 200 mcg Route: I.A. Start: 9:27 AM Stop: 9:27 AM Medication: Versed Amount: 1 mg Route: I.V. I, the attending physician, have reviewed and verified all procedure medications. Yes, all medications given per verbal order History/Risk Factors Hypertension: Yes Dyslipidemia: No Peripheral Arterial Disease (PAD): No Myocardial Infarction (OK): No Obesity: No Renal Disease: No Tobacco Use: Never Prior Interventions PCI: No CABG: No Valve Surgery: No Report Signatures Finalized by Lokesh Bush MD on 05/05/2023 11:23 AM
--- NOTE | 2023-05-01 08:55 | W.PM.OPSUD ---
Surgery/Procedure H&P Update DATE OF PROCEDURE: May 01, 2023 DATE H&P PERFORMED: 04/30/23 H&P UPDATE INFORMATION: I have reviewed H&P completed within last 30 days, I have examined patient prior to procedure and No changes to prior documentation PREOP DIAGNOSIS: NSTEMI PRIMARY INDICATION FOR PROCEDURE: NSTEMI PLANNED PROCEDURE: Left heart heart cath with possible percutaneous coronary intervention PATIENT REASSESSED PRIOR TO SEDATION, WITH NO CHANGE NOTED: Yes PHYSICAL EXAM: alert, oriented x 3, clear to auscultation bilaterally and regular rate & rhythm AIRWAY EVAL/ANESTHESIA PLAN: normal airway, ASA III, Local Anesthesia, Risks, benefits & alternatives of sedation and/or procedure discussed and Patient agrees to continue as planned ADDITIONAL INFORMATION: Moderate sedation
--- NOTE | 2023-05-01 10:00 | SUR.PHASEI ---
Post Cath Note Received patient from label designer status post cardiac catheterization via the right radial approach. TR Band in place. Site is hemostatic and free of s/s of hematoma. 15 ML IN BAND. Verbal post cath instructions went over with the patient. He understood well. Call light in reach. Informed to call for needs. Family at bedside.
--- NOTE | 2023-05-01 10:03 | PM.PN ---
Subjective Subjective: Hyponatremia sodium 132 , potassium 3.3 Coronary angiogram today Positive fluid balance No active chest pain Vitals/I&O/Wt Last Vital Signs Temp 98.7 F 05/01/23 07:09 Pulse 86 05/01/23 07:34 Resp 18 05/01/23 07:34 BP 105/61 05/01/23 07:09 Pulse Ox 92 05/01/23 07:34 O2 Del Method Room Air 05/01/23 07:34 O2 Flow Rate 2 04/30/23 19:59 04/30/23 05/01/23 05/01/23 22:59 06:59 14:59 Intake Total 480 / 960 Output Total 300 / 300 Balance 480 / 960 -300 / 660 Physical Exam Narrative: Mild signs of fluid overload GCS 15 Awake and alert Currently on room air Hemodynamically stable Afebrile S1, S2 Data 05/01/23 04:11 05/01/23 04:11 A&P Assessment and plan (1) HTN (hypertension): (2) Hypoxia: (3) Acute exacerbation of CHF (congestive heart failure): (4) Left ventricular apical thrombus: (5) Low vitamin B12 level: (6) D-dimer, elevated: (7) NSTEMI (non-ST elevated myocardial infarction): (8) Generalized weakness: Plan Acute systolic CHF exacerbation Angiogram today to rule out ischemic cardiomyopathy LifeVest at discharge Apical thrombus continue therapeutic Lovenox which will be transition to Eliquis or Coumadin at discharge Decision regarding continuation of IV Lasix will be made after today's angiogram once I know end-diastolic volume Generalized weakness request PT evaluation Low B12, replenish with P.o. regimen Non-STEMI Finished ACS protocol GERD: Continue Protonix Hypertension: Blood pressure has been stable amlodipine was discontinued yesterday Chronic kidney disease creatinine stable monitor after contrast with angiogram PT evaluation Full code Attestations Medical Necessity Statement*: Continue medical therapy Diagnoses HTN (hypertension) I10 Hypoxia R09.02 Acute exacerbation of CHF (congestive heart failure) I50.9 Left ventricular apical thrombus I51.3 Low vitamin B12 level R79.89 D-dimer, elevated R79.89 NSTEMI (non-ST elevated myocardial infarction) I21.4 Generalized weakness R53.1
--- NOTE | 2023-05-01 10:13 | PM.PN ---
Subjective Subjective: Patient had coronary angiogram showed severe mid and distal LAD stenosis s/p PCI with 2 stents. 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 RCA has severe mid and distal stenosis which will undergo staged PCI in 2 days. It is heavily calcified and will need arthrectomy vs shockwave lithotripsy. Vitals/I&O/Wt Last Vital Signs Temp 98.7 F 05/01/23 07:09 Pulse 86 05/01/23 07:34 Resp 18 05/01/23 07:34 BP 105/61 05/01/23 07:09 Pulse Ox 92 05/01/23 07:34 O2 Del Method Room Air 05/01/23 07:34 O2 Flow Rate 2 04/30/23 19:59 04/30/23 05/01/23 05/01/23 22:59 06:59 14:59 Intake Total 480 / 960 Output Total 300 / 300 Balance 480 / 960 -300 / 660 Physical Exam Narrative: GENERAL: Patient is alert, awake and oriented x3. [] NECK: No jugular vein distension. [] HEENT: No cyanosis. No icterus. No pallor. [] HEART: Regular S1 and S2. Grade 2/6 systolic function LUNGS: Clear to auscultate bilaterally. [] CENTRAL NERVOUS SYSTEM: Grossly nonfocal. [] EXTREMITIES: Lower extremities with 1+ edema bilaterally. Data 05/01/23 04:11 05/01/23 04:11 A&P Assessment and plan (1) NSTEMI (non-ST elevated myocardial infarction): (2) Acute exacerbation of CHF (congestive heart failure): (3) Left ventricular apical thrombus: (4) HTN (hypertension): Plan Patient is s/p PCI with 2 stents to LAD. Will need staged PCI of RCA on Saturday. His renal function is borderline abnormal. Monitor for now. Continue aspirin and Plavix. Continue Lovenox for now as has LV thrombus. Thank you for involving us with care of this patient. We will continue to follow. Please call with questions. Attestations Medical Necessity Statement*: Care expected to cross 2 midnights. Coding Level of Care Code Acute Code for [facility] [employer] Diagnoses NSTEMI (non-ST elevated myocardial infarction) I21.4 Acute exacerbation of CHF (congestive heart failure) I50.9 Left ventricular apical thrombus I51.3 HTN (hypertension) I10
[2023-05-01] MEDS: cyanocobalamin 1,000 mcg/mL SDV 1000 MCG IM (12:52)
--- NOTE | 2023-05-01 14:12 | PC.SOCIAL ---
IMM Updated Updated pt on IMM. No questions voiced. Provided pt a copy. Initialed, dated, & timed copy in chart.
--- NOTE | 2023-05-01 17:54 | CT_ITS ---
WS: [id number] CT HEAD TECHNIQUE: Noncontrast CT of the head obtained from the skullbase to the vertex. CLINICAL INFORMATION: Fall COMPARISON: None. DLP: 1045.[address] scans at [facility] use at least one of these dose optimization techniques: automated e xposure control; mA and/or kV adjustment per patient size (includes targeted exams where dose is matc hed to clinical indication); or iterative reconstruction. FINDINGS: No evidence of intracranial hemorrhage or mass effect. Ventricular system and basal cisterns are ruggiero nt. Mild small vessel changes with mild parenchymal volume loss. No extra-axial fluid collections. No evidence of mass or mass effect. 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 Intracranial vascular calcification. Incidental slightly low-lying cerebellar to nsils. Mild mucosal thickening in the ethmoid air cells. Air-fluid level in the RIGHT sphenoid sinus. IMPRESSION: 1. No evidence of intracranial hemorrhage or mass effect. 2. Mild small vessel changes with mild parenchymal volume loss. 3. No acute intracranial findings.
[2023-05-01] MEDS: enoxaparin 80 mg/0.8 mL Syringe SUBCUT (17:56)
[2023-05-01] MEDS: sertraline 100 mg Tablet 150 MG PO (17:56)
[2023-05-01] MEDS: pantoprazole DR 40 mg Tablet PO (17:57)
[2023-05-01] MEDS: potassium chloride ER 20 mEq Tablet 40 MEQ PO (20:05)
[2023-05-02] VITALS (10 sets, daily range): BP systolic 110–139; BP diastolic 58–63; PULSE 21–120; RESP 18–31; TEMP 36.4–37.1; O2SAT 91–98
[2023-05-02 04:26] LABS: Basophils % 0.3 %; Eosinophils % 0.1 %; Hematocrit 33.2 % (37-53); Lymphocytes # 0.4 10^3/uL (0.8-4.8); Lymphocytes % 2.6 %; Mean Corpuscular HGB Conc 34.9 g/dL (30-55); Mean Corpuscular Hemoglobin 29.7 pg (27-33); Mean Corpuscular Volume 85.1 fl (82-101); Monocytes # 0.9 10^3/uL (0.2-0.9); Monocytes % 5.5 %; Neutrophils # 14.29 10^3/uL (1.8-7.7); Neutrophils % 90.9 %; Nucleated Red Blood Cells % 0 %; Platelet Count 148 10^3/cmm (157-399); Red Cell Distribution Width 15.2 % (12.1-15.1); White Blood Count 15.71 10^3/uL (3.29-11.43)
[2023-05-02 04:49] LABS: Anion Gap 13.5 (5-19); Blood Urea Nitrogen 31 mg/dL (8-23); Calcium 8.2 mg/dL (8.5-10.5); Carbon Dioxide 21 mmol/L (22-29); Chloride 98 mmol/L (98-107); Glucose 203 mg/dL (65-115); Osmolality Calculated 280 mOsm/kg (285-295); Potassium 3.5 mmol/L (3.5-5.1); Sodium 129 mmol/L (136-145)
[2023-05-02] MEDS: enoxaparin 80 mg/0.8 mL Syringe SUBCUT ×2 (05:43→18:27)
--- NOTE | 2023-05-02 07:01 | PM.PN ---
Subjective Subjective: Patient fell yesterday, CT head was requested Patient most likely will need rehab Got 2 stents in LAD RCA staged procedure on Saturday No significant events overnight Patient was shaving today Dr. Anna We will do investigation with UA, chest x-ray Vitals/I&O/Wt Last Vital Signs Temp 98.5 F 05/02/23 03:34 Pulse 94 05/02/23 05:23 Resp 24 H 05/02/23 03:34 BP 120/62 05/02/23 03:34 Pulse Ox 91 05/02/23 03:34 O2 Del Method Nasal Cannula 05/02/23 03:34 O2 Flow Rate 2 05/01/23 10:30 05/01/23 05/02/23 05/02/23 22:59 06:59 14:59 Intake Total 640 / 1240 120 / 1360 Output Total 0 / 0 100 / 100 Balance 640 / 1240 20 / 1260 Physical Exam Narrative: Awake and alert Mild signs of fluid overload Currently on 2 L GCS 15 Hemodynamically stable S1, S2 Pleasant No signs of focal deficit Data 05/02/23 04:05 05/02/23 04:05 A&P Assessment and plan (1) HTN (hypertension): (2) Hypoxia: (3) Acute exacerbation of CHF (congestive heart failure): (4) Left ventricular apical thrombus: (5) Low vitamin B12 level: (6) D-dimer, elevated: (7) NSTEMI (non-ST elevated myocardial infarction): (8) Generalized weakness: Plan Status post 2 stents in the LAD, staged angiogram for RCA occlusion At the time of discharge patient likely will need Lovenox and Plavix considering left ventricle apical thrombus We will make him n.p.o. after midnight Hemodynamically stable Acute hypoxia requiring 2 L related to CHF Most likely patient will need rehab Full code DVT prophylaxis on board Continue B12 supplementation Rigors and chills check UA and chest x-ray, no active fever Hold Lasix, will do gentle fluid hydration Attestations Medical Necessity Statement*: Continue medical management Diagnoses HTN (hypertension) I10 Hypoxia R09.02 Acute exacerbation of CHF (congestive heart failure) I50.9 Left ventricular apical thrombus I51.3 Low vitamin B12 level R79.89 D-dimer, elevated R79.89 NSTEMI (non-ST elevated myocardial infarction) I21.4 Generalized weakness R53.1
[2023-05-02] MEDS: pantoprazole DR 40 mg Tablet PO ×2 (08:33→18:27)
[2023-05-02] MEDS: sertraline 100 mg Tablet 150 MG PO ×2 (08:33→18:27)
[2023-05-02] MEDS: sennosides-docusate Tablet 1 TAB PO (08:33)
[2023-05-02] MEDS: aspirin 81 mg EC Tablet PO (08:33)
[2023-05-02] MEDS: clopidogrel 75 mg Tablet PO (08:34)
[2023-05-02] MEDS: FUROsemide 10 mg/mL SDV 2mL 20 MG IVP (08:34)
--- NOTE | 2023-05-02 10:02 | XRR_ITS ---
PROCEDURE INFORMATION: Exam: XR Chest Exam date and time: 05/02/2023 10:13 AM Age: 82 years old Clinical indication: Other: Shaking; Prior surgery; Surgery date: 6+ months; Surgery type: Heart stints; Additional info: Rigors.No history of trauma or recent surgery is provided. TECHNIQUE: Imaging protocol: Radiologic exam of the chest. 1image(s) are provided. Views: 1 view. COMPARISON: 1. CR (CHEST, ) 04/30/2023 2:[address] angio chest PE protcl [id number] 04/28/2023 4:53 PM FINDINGS: Lungs: No lobar consolidation is appreciated. Lung central and basal aeration does appears slightly improved. Pleural spaces: There is some minimal costophrenic angle blunting. No pneumothorax is appreciated. Heart/Mediastinum: The cardiomediastinal silhouette is upper normal in size.This can be seen with central averaging as well as paul enlargement. No cardiac decompensation is appreciated. There appears to be some central hiatal hernia averaging. Diaphragm: There is slight asymmetric right hemidiaphragm elevation. Bones/joints: Osseous alignment is maintained.No interval displaced fracture or dislocation is appreciated. There is slightly decreased bone mineralization overall. There are postsurgical changes of the cervical spine similar overall. Soft tissues: No radiopaque foreign body or subcutaneous emphysema is appreciated. Other findings: No other significant interval changes are appreciated. XR/XR chest 1V portable [id number] IMPRESSION: There is improving central basal aeration overall as compared to the previous study. No interval lobar consolidation or cardiac decompensation is appreciated.
[2023-05-02] MEDS: sodium chloride 0.9% 1,000 ML 75 ML IV (10:30)
--- NOTE | 2023-05-02 11:10 | PM.PN ---
Subjective Subjective: Patient had a fall yesterday. No intracranial bleed on the CT. Denies chest pain. Vitals/I&O/Wt Last Vital Signs Temp 98.3 F 05/02/23 07:29 Pulse 86 05/02/23 07:29 Resp 27 H 05/02/23 07:29 BP 110/62 05/02/23 07:29 Pulse Ox 97 05/02/23 07:29 O2 Del Method Nasal Cannula 05/02/23 07:29 O2 Flow Rate 2 05/01/23 10:30 05/01/23 05/02/23 05/02/23 22:59 06:59 14:59 Intake Total 640 / 1240 120 / 1360 120 / 120 Output Total 0 / 0 100 / 100 Balance 640 / 1240 20 / 1260 120 / 120 Physical Exam Narrative: GENERAL: Patient is alert, awake and oriented x3. [] NECK: No jugular vein distension. [] HEENT: No cyanosis. No icterus. No pallor. [] HEART: Regular S1 and S2. Grade 2/6 systolic function LUNGS: Clear to auscultate bilaterally. [] CENTRAL NERVOUS SYSTEM: Grossly nonfocal. [] EXTREMITIES: Lower extremities with 1+ edema bilaterally. Data 05/03/23 03:23 05/03/23 03:23 A&P Assessment and plan (1) NSTEMI (non-ST elevated myocardial infarction): (2) Acute exacerbation of CHF (congestive heart failure): (3) Left ventricular apical thrombus: (4) HTN (hypertension): Plan Plan for staged PCI of RCA tomorrow. NPO past midnight. Continue aspirin and plavix. Wbc increased. Primary team doing infectious workup. Continue Lovenox for now as has LV thrombus. Thank you for involving us with care of this patient. We will continue to follow. Please call with questions. Attestations Medical Necessity Statement*: Care expected to cross 2 midnights. Coding Level of Care Code Acute Code for [facility] Diagnoses NSTEMI (non-ST elevated myocardial infarction) I21.4 Acute exacerbation of CHF (congestive heart failure) I50.9 Left ventricular apical thrombus I51.3 HTN (hypertension) I10
[2023-05-02 12:09] LABS: Add Urine Microscopic? YES; Bilirubin Urine Neg (Negative); Blood Urine 3+ (Negative); Glucose Urine UA Norm (Normal); Ketones Urine 1+ (Negative); Leukocyte Esterase Urine Negative (Negative); Nitrate Urine Negative (Negative); Protein Urine Trace (Negative); Specific Gravity, Urine 1.015 (1.005-1.030); Urine Appearance Clear (CLEAR); Urine Color Yellow (Yellow); Urobilinogen Urine 1 mg/dL (Negative); pH Urine 5 (5-7)
[2023-05-02 12:14] LABS: Add Urine Culture? No; Amorphous Sediment Urine TRACE /hpf; Bacteria Urine TRACE /hpf; Mucus Urine 2+ /hpf; RBC Urine 0-4 /hpf (0-2); Squamous Epithelial Cell Urine 0-4 /hpf (0-5); WBC Urine RARE /hpf (0-5)
[2023-05-02 15:09] LABS: Glucose Point of Care 149 mg/dL (70-110)
[2023-05-02 18:16] LABS: SARS Covid-2 Antigen negative (Negative)
[2023-05-03] VITALS (8 sets, daily range): BP systolic 110–136; BP diastolic 59–73; PULSE 72–120; RESP 20–29; TEMP 36.6–39.4; O2SAT 91–95
[2023-05-03 03:40] LABS: Basophils % 0.2 %; Eosinophils # 0.1 10^3/uL (0.0-0.8); Eosinophils % 0.3 %; Lymphocytes # 0.8 10^3/uL (0.8-4.8); Mean Corpuscular HGB Conc 34.8 g/dL (30-55); Mean Corpuscular Hemoglobin 30.1 pg (27-33); Mean Corpuscular Volume 86.4 fl (82-101); Mean Platelet Volume 11.2 fL (7.4-10.4); Neutrophils # 14.17 10^3/uL (1.8-7.7); Neutrophils % 87.8 %; Nucleated Red Blood Cells % 0 %; Platelet Count 145 10^3/cmm (157-399); Red Blood Count 3.59 10^6/uL (3.85-5.65); Red Cell Distribution Width 15.4 % (12.1-15.1); White Blood Count 16.14 10^3/uL (3.29-11.43)
[2023-05-03 04:01] LABS: Anion Gap 13.4 (5-19); Blood Urea Nitrogen 30 mg/dL (8-23); Carbon Dioxide 22 mmol/L (22-29); Chloride 100 mmol/L (98-107); Glucose 135 mg/dL (65-115); Osmolality Calculated 282 mOsm/kg (285-295); Potassium 3.4 mmol/L (3.5-5.1); Sodium 132 mmol/L (136-145)
--- NOTE | 2023-05-03 07:36 | XACV_ITS ---
Exam Room: [facility] Ht: 178 cm Wt: 77 kg BSA: 1.96 m2 Gender: Male : 1940 Any Known Allergies: No known allergies Exam Priority: Routine Procedure(s): Procedure Description: Diagnostic procedure Procedure Description: PCI procedure Procedure Description: Left Heart Catheterization Procedure Description: Drug Eluting Coronary Stent Procedure Description: PTCA Procedure Description: Miscellaneous Procedure Description: ACT Procedure Description: Other procedure (in conj w/Dx Cath or PCI) Diagnostic Cath Status: Elective Diagnostic Findings * INDICATION: Patient was admitted for NSTEMI and LV dysfunction. Patient had coronary angiogram and PCI of LAD on 05/01/2023. For full angiogram report, please refer to procedure report from that date. Today plan for staged PCI of mid and distal RCA. * Distal Right Coronary Artery: subtotal occlusion of heavily calcified vessel, KELLI: 2 flow. * Mid Right Coronary Artery: significant 80% stenosis, KELLI: 3 flow. * Coronary angiography shows right dominance. PCI Status: Elective PCI Indication: Staged PCI Interventional Findings * Procedure detail: We obtained access in right common femoral artery. RCA was engaged with a AL 0.75 guide catheter. 0.014 run-through guidewire was used to cross the stenosis and was put in the PDA. We first predilated the distal RCA stenosis with 2.25 x 30 mm balloon. However it could not completely cross the stenosis. It was heavily calcified vessel. We then used 2.25 x 12 mm semicompliant balloon however it could also not cross. We then used 1.2 x 12 mm semi-compliant balloon. This was followed by predilation with 2.0 x 12 mm balloon. We attempted to place stent however stent could not cross distally. Given small caliber distal vessel, we decided to treat it medically. Mid RCA stenosis underwent intravascular lithotripsy with shockwave balloon 2.5x12mm. This was followed by predilation 3.0 x 20 mm NC balloon. We then placed a 3.0 x 30 mm resolute [place] drug-eluting stent. At this time final angiogram was performed that showed the mid RCA did not have any residual stenosis. Distal RCA still had a subtotal occlusion. In future if patient has symptoms, can consider arthrectomy however given small caliber vessel, can continue with medical therapy if he is asymptomatic. Guidewire and guide catheter were removed. 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 . * Mid Right Coronary Artery: 80% stenosis treated with a shockwave, MDT NC EUPHORA RX 3.35C48TF BALLOON, and MDT R WANDA 3.0X30 MARIBETH. 0% residual stenosis, KELLI: 3 flow. * Distal Right Coronary Artery: 99% stenosis treated with a AB TREK 2.25X30 RX BALLOON, AB TREK 2.25X12 RX BALLOON, AB MINI TREK 2.00X12 RX BALLOON, and AB MINI TREK 1.20X12 RX BALLOON. 99% residual stenosis, KELLI: 2 flow. Conclusions 1. Severe mid and distal RCA stenosis. Mid RCA underwent successful revascularization with intravascular lithotripsy 2. with shockwave balloon and stent placement. 3. Distal RCA is small caliber vessel. Balloon angioplasty was performed. However given calcified artery, stent could not be advanced. We will medically treat it. 4. In future if he has symptoms, we will plan on arthrectomy 5. and PCI. But it is a high risk procedure given smaller caliber vessel and distal location. 6. Mid Right Coronary Artery was treated with a Balloon, Balloon, and Drug Eluting Stent. 7. Distal Right Coronary Artery was treated with a Balloon, Balloon, Balloon, and Balloon. Recommendations * Continue dual antiplatelet therapy with aspirin and plavix. * Continue anticoagulation. * Outpatient cardiology follow up in 2 weeks. Interventional RX Recommendation: PCI w/o planned CABG Diagnostic RX Recommendation: PCI w/o planned CABG Anticoagulation: Heparin Pressures Phase:Rest AO : 135 / 68 ( 95 ) @ 9:37:00 AM Clinical Evaluation EBL: 5mL-10mL Procedural Details Procedure Consent Obtained. Pre-Procedure Time Out. Identified patient by full name and date of as verbalized by the patient/guarantor. Does the consent match the physician's order: Yes. Accurate & Complete Informed Consent: Yes. Inpatient/Outpatient History & Physical on Chart: Yes. If H&P is completed, is and addenduem needed: No; If yes, is the addendum complete: N/A. Visualize and Verify Site with Patient/Guarantor: N/A. Relevant Radiology Images available: N/A. Pre-op teaching completed and patient verbalized understanding. The risks, benefits, and alternatives of sedation and/or procedure were discussed by physician. The patient agrees to continue. Hemodynamic formulas in Rest were re-calculated based on hemoglobin value from 05/03/2023 3:22:00 AM. Procedure started. Physician arrived. Correct patient, site and procedure confirmed by cath team. PERRLA. Strong, equal hand lost and found clerk bilaterally. Lungs clear x 5 lobes. IV Site on Arrival: 18 gauge in the left wrist. IV Fluids: 0.9% NaCl at KVO. 0 mL infused prior to school laboratory technician. Oxygen started at 2liters/min via nasal canula. right groin was prepped with chloroprep then draped in the usual sterile fashion. right radial was prepped with chloroprep then draped in the usual sterile fashion. Baseline sample Acquired. HR: 81 BPM. [facility] Clinical Fraility Score: 4: Vulnerable. 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 Chest Pain Symptom Assessment: Typical Angina Symptoms. Cardiovascular Instability: No. Equipment: 6F - Radial. Cardiac Cath Pack. ACIST Manifold Kit Model BT 2000. Heparinized Saline (2 units/mL), 1000 mL bag. Physician scrubbed in. Immediate Pre-Procedure Time Out. Correct Patient: Yes; Correct Procedure: Yes; Correct Site: Yes; Correct Patient Position: Yes; Correct Supplies: Yes; Dried Flammable Prep: Yes; Blood Products Available: N/A;. Lidocaine 1% infiltrated to the right groin. Arterial access obtained with micropuncture set. Inventory is CRD 6FR AL .75 GUIDE. 6 faroese AL 0.75 guide catheter was inserted over the wire. Runthrough guidewire was advanced through the guide catheter to lesion in the distal RCA. Multiple views taken of right coronary artery. Inflation number : 1 A AB TREK 2.25X30 RX BALLOON was prepped and advanced across the Dist RCA , then inflated to 8 VASILE for 0:14 seconds. Balloon out. Inflation number : 2 A AB TREK 2.25X12 RX BALLOON was prepped and advanced across the Dist RCA , then inflated to 8 VASILE for 0:15 seconds. Balloon out. Inflation number : 3 A AB MINI TREK 2.00X12 RX BALLOON was prepped and advanced across the Dist RCA , then inflated to 8 VASILE for 0:13 seconds. Balloon out. Guideliner inserted. Inflation number: 4 The AB MINI TREK 2.00X12 RX BALLOON was reinflated across the Dist RCA, to 8 VASILE for 0:10 seconds. Inflation number: 5 The AB MINI TREK 2.00X12 RX BALLOON was reinflated across the Dist RCA, to 8 VASILE for 0:10 seconds. Balloon out. Inflation number : 6 A AB MINI TREK 1.20X12 RX BALLOON was prepped and advanced across the Dist RCA , then inflated to 12 VASILE for 0:23 seconds. Inflation number: 7 The AB MINI TREK 1.20X12 RX BALLOON was reinflated across the Dist RCA, to 12 VASILE for 0:15 seconds. Balloon out. Results checked. Inflation number: 8 The AB MINI TREK 2.00X12 RX BALLOON was reinflated across the Dist RCA, to 8 VASILE for 0:11 seconds. Inflation number: 9 The AB MINI TREK 2.00X12 RX BALLOON was reinflated across the Dist RCA, to 8 VASILE for 0:08 seconds. Inflation number: 10 The AB MINI TREK 2.00X12 RX BALLOON was reinflated across the Dist RCA, to 10 VASILE for 0:14 seconds. Balloon out. MDT R WANDA 2.25x22 MARIBETH inserted. Unable to cross lesion. Intact stent removed. Inflation number: 11 The AB TREK 2.25X12 RX BALLOON was reinflated across the Dist RCA, to 8 VASILE for 0:16 seconds. Inflation number: 12 The AB TREK 2.25X12 RX BALLOON was reinflated across the Dist RCA, to 8 VASILE for 0:08 seconds. Inflation number: 13 The AB TREK 2.25X12 RX BALLOON was reinflated across the Dist RCA, to 10 VASILE for 0:20 seconds. Balloon out. ACT drawn. Results 400 seconds. Therapeutic limits - pre-heparin administration 90-150 seconds and monitoring heparin during a vascular procedure >250 seconds. Inflation number : 1 A Shockwave C2 IVL 2.5x12 was prepped and advanced across the Mid RCA , then inflated to 4 VASILE for 0:13 seconds. Inflation number: 2 The Shockwave was reinflated across the Mid RCA, to 4 VASILE for 0:14 seconds. Inflation number: 3 The Shockwave was reinflated across the Mid RCA, to 4 VASILE for 0:14 seconds. Inflation number: 4 The Shockwave was reinflated across the Mid RCA, to 4 VASILE for 0:17 seconds. Inflation number: 5 The Shockwave was reinflated across the Mid RCA, to 4 VASILE for 0:13 seconds. Results checked. Balloon out. Inflation number : 6 A MDT NC EUPHORA RX 3.05C13IC BALLOON was prepped and advanced across the Mid RCA , then inflated to 12 VASILE for 0:10 seconds. Inflation number: 7 The MDT NC EUPHORA RX 3.43U03JW BALLOON was reinflated across the Mid RCA, to 12 VASILE for 0:06 seconds. Balloon out. Inflation Number : 8 A MDT R WANDA 3.0X30 MARIBETH -Lot Number# [id number] exp date 03/02/2024 was prepped and advanced across the Mid RCA. The stent was deployed at 12 VASILE for 0:16 seconds. Stent balloon and wire out. Guideliner out. Guide catheter out. A 5 faroese JR4 catheter in over wire. Catheter out. Physician scrubbed out. A Suture was successful obtaining hemostatsis at the Right Femoral artery insertion site. Sheath(s) sutured into position with 2-0 silk and sterile 4x4's and Op-site applied over the site. No oozing or signs and symptoms of hematoma noted. Arterial sheath flushed and connected to tranducer and pressure bag with heparinized saline. Post Procedure: Pulses reassessed and unchanged. PERRLA. Strong, equal hand lost and found clerk bilaterally. No VTE prophylaxis required. Post-op diagnosis: staged PCI. Complications: none. Estimated blood loss: 5mL-10mL. Responsiveness - Normal response to verbal stimuli; alert and oriented, PERRLA. Airway - Unaffected, no intervention required; spontaneous ventilation. Circulation: W/N/L, pulses unchanged. Nausea/Vomiting: N/A. Medication's Wasted: Heparin = 1000 units. Medication's Wasted: Lidocaine 1% = 2 mL. Total IV fluids: 74 mL. Medication's Wasted: Other = fentanyl 50 mcg. Contrast type used: Visipaque 320 mgI/mL, 200 mL bottle. Procedure completed. Patient transferred by bed to 1st floor. Vital chart was stopped. Access Site Site: Right Femoral artery Sheath Size: 6 Fr Hemostasis Method: Suture Hemostasis Success: Successful Procedure Medications Start: 8:28 AM Stop: 8:28 AM Medication: Benadryl Amount: 50 mg Route: I.V. Start: 8:29 AM Stop: 8:29 AM Medication: Versed Amount: 1 mg Route: I.V. Start: 8:37 AM Stop: 8:37 AM Medication: Heparin Amount: 7000 units Route: I.V. Start: 9:02 AM Stop: 9:02 AM Medication: Heparin Amount: 1000 units Route: I.V. Start: 9:07 AM Stop: 9:07 AM Medication: Versed Amount: 0.5 mg Route: I.V. Start: 9:13 AM Stop: 9:13 AM Medication: Versed Amount: 0.5 mg Route: I.V. Start: 9:15 AM Stop: 9:15 AM Medication: Fentanyl Amount: 25 mcg Route: I.V. Start: 9:21 AM Stop: 9:21 AM Medication: Fentanyl Amount: 25 mcg Route: I.V. I, the attending physician, have reviewed and verified all procedure medications. Yes, all medications given per verbal order History/Risk Factors Hypertension: Yes Dyslipidemia: No Peripheral Arterial Disease (PAD): No Myocardial Infarction ([place]): No Obesity: No Renal Disease: No Tobacco Use: Never Prior Interventions PCI: No CABG: No Valve Surgery: No Report Signatures Finalized by Lokesh Bush MD on 05/05/2023 12:50 PM
--- NOTE | 2023-05-03 08:08 | P.PN_ITS ---
Subjective Subjective: Patient had pci of mid rca with 1 stent. Distal RCA underwent balloon angioplasty however stent could not be advanced because of heavy calcification. Given small caliber vessel and distal disease, decision made to medically treat it for now. No chest pain. WBC count still elevated. Vitals/I&O/Wt Last Vital Signs Temp 97.9 F 05/03/23 04:00 Pulse 78 05/03/23 06:00 Resp 21 H 05/03/23 04:00 BP 122/60 05/03/23 04:00 Pulse Ox 95 05/03/23 04:00 O2 Del Method Room Air 05/03/23 04:00 O2 Flow Rate 2 05/01/23 10:30 05/02/23 05/03/23 05/03/23 22:59 06:59 14:59 Intake Total 720 / 1080 1000 / 1000 Output Total 400 / 400 Balance 320 / 680 1000 / 1000 Physical Exam Narrative: GENERAL: Patient is alert, awake and oriented x3. [] NECK: No jugular vein distension. [] HEENT: No cyanosis. No icterus. No pallor. [] HEART: Regular S1 and S2. Grade 2/6 systolic function LUNGS: Clear to auscultate bilaterally. [] CENTRAL NERVOUS SYSTEM: Grossly nonfocal. [] EXTREMITIES: Lower extremities with 1+ edema bilaterally. Data 05/03/23 03:23 05/03/23 03:23 A&P Assessment and plan (1) NSTEMI (non-ST elevated myocardial infarction): (2) Acute exacerbation of CHF (congestive heart failure): (3) Left ventricular apical thrombus: (4) HTN (hypertension): Plan Patient had PCI of mid RC with 1 stent. Distal vessel had balloon angioplasty but stent could not be advanced because of heavy calcification. Patient started on empiric antibiotic therapy per primary team. They are pursuing further infectious work up as no source of infection has been identified. Continue Lovenox for now as has LV thrombus. We will stop aspirin and time of discharge. Thank you for involving us with care of this patient. We will continue to follow. Please call with questions. Attestations Medical Necessity Statement*: Care expected to cross 2 midnights. Coding Level of Care Code Acute Code for [facility] Diagnoses NSTEMI (non-ST elevated myocardial infarction) I21.4 Acute exacerbation of CHF (congestive heart failure) I50.9 Left ventricular apical thrombus I51.3 HTN (hypertension) I10
--- NOTE | 2023-05-03 08:08 | W.PM.OPSUD ---
Surgery/Procedure H&P Update DATE OF PROCEDURE: May 03, 2023 DATE H&P PERFORMED: 04/30/23 H&P UPDATE INFORMATION: I have reviewed H&P completed within last 30 days, I have examined patient prior to procedure and Changes to prior documentation as noted here CHANGES TO PREVIOUS DOCUMENTATION: Patient had PCI of LAD done 2 days back and her for staged PCI of RCA. PREOP DIAGNOSIS: NSTEMI/ Staged PCI of RCA PRIMARY INDICATION FOR PROCEDURE: NSTEMI/ Staged PCI of RCA PLANNED PROCEDURE: Operation Date: 05/03/23 08:30 Proposed Procedures Staged PCI of RCA- Lokesh Bush M.D PATIENT REASSESSED PRIOR TO SEDATION, WITH NO CHANGE NOTED: Yes PHYSICAL EXAM: alert, oriented x 3, clear to auscultation bilaterally and regular rate & rhythm AIRWAY EVAL/ANESTHESIA PLAN: normal airway, ASA III, Local Anesthesia, Risks, benefits & alternatives of sedation and/or procedure discussed and Patient agrees to continue as planned ADDITIONAL INFORMATION: Moderate sedation.
[2023-05-03] MEDS: sertraline 100 mg Tablet 150 MG PO ×2 (09:55→17:42)
[2023-05-03] MEDS: sennosides-docusate Tablet 1 TAB PO (09:55)
[2023-05-03] MEDS: clopidogrel 75 mg Tablet PO (09:55)
[2023-05-03] MEDS: pantoprazole DR 40 mg Tablet PO ×2 (09:55→17:42)
[2023-05-03] MEDS: aspirin 81 mg EC Tablet PO (09:55)
--- NOTE | 2023-05-03 10:46 | P.PN_ITS ---
Subjective Subjective: Leukocytosis noted Patient has been afebrile UA unremarkable chest x-ray unremarkable COVID antigen negative I have asked nursing staff to check for IV line infiltration Vitals/I&O/Wt Last Vital Signs Temp 98.3 F 05/03/23 08:07 Pulse 81 05/03/23 08:07 Resp 22 H 05/03/23 08:07 BP 110/67 05/03/23 08:07 Pulse Ox 91 05/03/23 08:07 O2 Del Method Room Air 05/03/23 08:07 O2 Flow Rate 2 05/01/23 10:30 05/02/23 05/03/23 05/03/23 22:59 06:59 14:59 Intake Total 720 / 1080 1000 / 1000 Output Total 400 / 400 Balance 320 / 680 1000 / 1000 Physical Exam Narrative: Awake and alert GCS 15 Pleasant collar Blood pressure stable Afebrile Nonfocal neuro exam No sign meningitis Currently on room air Pleasant Abdomen soft Data 05/03/23 03:23 05/03/23 03:23 A&P Assessment and plan (1) Reduced ejection fraction concurrent with and due to acute heart failure: (2) HTN (hypertension): (3) Hypoxia: (4) Acute exacerbation of CHF (congestive heart failure): (5) Left ventricular apical thrombus: (6) Low vitamin B12 level: (7) D-dimer, elevated: (8) NSTEMI (non-ST elevated myocardial infarction): (9) Myocardial injury: (10) Generalized weakness: (11) Leukocytosis: Plan Worsening leukocytosis No infectious source identified Rule out C. 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 and drop in blood pressure Likely will need [place] [facility] placement appreciate PT recommendations Left apical thrombus Continue therapeutic Lovenox We will switch to Eliquis at discharge Staged procedure for RCA angiogram today 2 stents in LAD Continue dual antiplatelet for now might switch to Eliquis and Plavix at discharge Full code Cardiac diet Attestations Medical Necessity Statement*: Continue medical management Diagnoses Reduced ejection fraction concurrent with and due to acute heart failure I50.21 HTN (hypertension) I10 Hypoxia R09.02 Acute exacerbation of CHF (congestive heart failure) I50.9 Left ventricular apical thrombus I51.3 Low vitamin B12 level R79.89 D-dimer, elevated R79.89 NSTEMI (non-ST elevated myocardial infarction) I21.4 Myocardial injury I5A Generalized weakness R53.1 Leukocytosis D72.829
[2023-05-03 11:48] LABS: Procalcitonin 11.72 ng/mL (0-0.5)
[2023-05-03] MEDS: cefTRIAXone 1,000 MG in sodium chloride 0.9% (plus) 50 ML 100 MG IV (12:02)
[2023-05-03] MEDS: vancomycin 1,000 MG in sodium chloride 0.9% 250 ML 250 MG IV (12:03)
[2023-05-03] MEDS: metoprolol tartrate 25 mg Tablet PO ×2 (12:03→21:33)
[2023-05-03 12:52] LABS: Partial Thromboplastin Time 26.2 SECONDS (23.9-36.7)
[2023-05-03 13:03] LABS: Lactate (Lactic Acid level) 1.2 mmol/L (0.5-2.2)
--- NOTE | 2023-05-03 13:28 | PC.SOCIAL ---
IMM Update pg 2 of IMM updated and reviewed with patient. Copy provided and Copy dated, initialed and placed in chart.
--- NOTE | 2023-05-03 15:09 | PC.NURSE ---
Sheath pulled per protocol. No issues, pressure held x20min and dressing applied. Family and patient are aware of activity restrictions. Nurse will continue to monitor.
--- NOTE | 2023-05-03 15:10 | PC.NURSE ---
Patient spiked a temperature of 103.0 at approx 12:30. Temperature has sense came down to 99.0. Physician notified. Nurse will continue to monitor.
--- NOTE | 2023-05-03 15:24 | CTR_ITS ---
PROCEDURE INFORMATION: Exam: CT Chest Without Contrast; Diagnostic Exam date and time: 05/03/2023 10:25 PM Age: 82 years old Clinical indication: Abnormal findings; Abnormal lab test; Elevated wbc; Other: N/a; Prior surgery; Surgery date: Post-operative (0-2 days); Surgery type: Coronary angioplasty today. Lumbar fusion. Patient HX: Persistent fever with increasing wbc over last three days. Coronary angioplasty performed earlier today. ; Additional info: Fever unkown source TECHNIQUE: Imaging protocol: Diagnostic computed tomography of the chest without contrast. Radiation optimization: All CT scans at this facility use at least one of these dose optimization techniques: automated exposure control; mA and/or kV adjustment per patient size (includes targeted exams where dose is matched to clinical indication); or iterative reconstruction. REPORTING DATA: Count of CT and Cardiac NM exams in prior 12 months: This patient has received 3 known CTs and 0 known cardiac nuclear medicine studies in the 12 months prior to the current study. COMPARISON: CT angio chest PE protcl [id number] 04/28/2023 4:53 PM RADIATION DOSE METRICS: Total DLP (mGy-cm): 885.19 FINDINGS: Lungs: New small ground-glass opacity in the peripheral right upper lobe. Increased consolidation in the inferior right lower lobe. Mild dependent atelectasis. Stable 10 mm nodule in the left lung apex. Pleural spaces: Unremarkable. No pneumothorax. No pleural effusion. Heart: The heart size is normal. Coronary arteries: Coronary artery calcifications. Lymph nodes: Unremarkable. No enlarged lymph nodes. Vasculature: The ascending thoracic aorta is upper normal in diameter measuring 4.0 cm. Bones/joints: Rightward thoracic curvature. Mild degenerative changes. No acute fracture. Soft tissues: Unremarkable. patients, consider CT Chest at 3 months, PET/CT, or biopsy. (Reference: Mildred) References: Corneliushoqueta H, et al. Guidelines for Management of Incidental Pulmonary Nodules Detected on CT Images: From the Fleischner Society 2017. Radiology. 2017;284(1):228-243. PROCEDURE INFORMATION: Exam: CT Abdomen And Pelvis Without Contrast Exam date and time: 05/03/2023 10:25 PM Age: 82 years old Clinical indication: Abnormal findings; Abnormal lab test; Elevated wbc; Other: N/a; Prior surgery; Surgery date: Post-operative (0-2 days); Surgery type: Coronary angioplasty today. Lumbar fusion. Patient HX: Persistent fever with increasing wbc over last three days. Coronary angioplasty performed earlier today. ; Additional info: Fever unkown source TECHNIQUE: Imaging protocol: Computed tomography of the abdomen and pelvis without contrast. Radiation optimization: All CT scans at this facility use at least one of these dose optimization techniques: automated exposure control; mA and/or kV adjustment per patient size (includes targeted exams where dose is matched to clinical indication); or iterative reconstruction. REPORTING DATA: Count of CT and Cardiac NM exams in prior 12 months: This patient has received 3 known CTs and 0 known cardiac nuclear medicine studies in the 12 months prior to the current study. COMPARISON: CT angio chest PE protcl [id number] 04/28/2023 4:53 PM RADIATION DOSE METRICS: Total DLP (mGy-cm): 885.19 FINDINGS: Liver: Hepatomegaly. No suspicious nodule. Gallbladder and bile ducts: Normal. No calcified stones. No ductal dilation. Pancreas: Normal. No ductal dilation. Spleen: Mild splenomegaly. Adrenal glands: Normal. No mass. Kidneys and ureters: Right renal cyst, Hounsfield units less than 20. No follow-up imaging recommended. The kidneys are otherwise unremarkable. No hydronephrosis. Excreted contrast in the renal collecting system. Stomach and bowel: Stool in distal colon and rectum. Diverticulosis of the colon. No diverticulitis. Mobile cecum which is located in the right upper quadrant. Decompressed stomach. The small bowel is unremarkable. No obstruction. Appendix: The appendix is visualized and is normal. Intraperitoneal space: Unremarkable. No free air. No significant fluid collection. Vasculature: Arterial calcifications. No aneurysm. Lymph nodes: Unremarkable. No enlarged lymph nodes. Urinary bladder: Contrast in the urinary bladder. No wall thickening. Reproductive: Unremarkable as visualized. Bones/joints: Scoliosis and degenerative changes of the spine. Posterior mechanical and anterior bony fusion of L3-L5. L4 decompressive laminectomy. No acute fracture. Soft tissues: Medication injection sites in the anterior abdominal wall. CT/[place] [id number] IMPRESSION: 1. Increased consolidation in the right lower lobe is most likely pneumonia. 2. Small ground-glass opacity in the right upper lobe is most likely pneumonia. 3. Stable 10 mm left apical nodule. For both low risk and high risk IMPRESSION: 1. No acute findings. 2. Diverticulosis of the colon. 3. Hepatosplenomegaly. COMMENTS: Consistent with the [employer] [employer]'s Incidental Findings Committee white paper (J Am Vamsi Radiol 2018): Any incidental renal lesion less than 1 cm or classified as too small to characterize, or any incidental cystic renal lesion characterized as simple-appearing, is likely benign. No follow-up imaging is recommended for these lesions per consensus recommendations based on imaging criteria.
[2023-05-03] MEDS: lactated ringers 1,000 ML 999 ML IV (15:47)
[2023-05-03 17:44] LABS: Lactate (Lactic Acid level) 1.4 mmol/L (0.5-2.2)
[2023-05-03 18:06] LABS: Adenovirus Not Detected (NOT DETECT); Chlamydia Pneumoniae Not Detected (NOT DETECT); Coronavirus 229E,HKU1,NL63,OC4 Not Detected (NOT DETECT); Human Metapneumovirus Not Detected (NOT DETECT); Human Rhinovirus/Enterovirus Not Detected (NOT DETECT); Influenza A Not Detected (NOT DETECT); Influenza A H1 Not Detected (NOT DETECT); Influenza A H1-2009 Not Detected (NOT DETECT); Influenza A H3 Not Detected (NOT DETECT); Influenza B Not Detected (NOT DETECT); Mycoplasma Pneumoniae Not Detected (NOT DETECT); Parainfluenza Virus Type 1 Not Detected (NOT DETECT); Parainfluenza Virus Type 2 Not Detected (NOT DETECT); Parainfluenza Virus Type 3 Not Detected (NOT DETECT); Parainfluenza Virus Type 4 Not Detected (NOT DETECT); Respiratory Syncytial Virus A Not Detected (NOT DETECT); Respiratory Syncytial Virus B Not Detected (NOT DETECT); SARS-COV-2 Not Detected (NOT DETECT)
[2023-05-03 23:23] LABS: Add Urine Culture? No; Add Urine Microscopic? YES; Amorphous Sediment Urine 1+ /hpf; Bilirubin Urine Neg (Negative); Blood Urine 3+ (Negative); Glucose Urine UA Norm (Normal); Ketones Urine 1+ (Negative); Leukocyte Esterase Urine Negative (Negative); Nitrate Urine Negative (Negative); Protein Urine Trace (Negative); Squamous Epithelial Cell Urine RARE /hpf (0-5); Urine Appearance Clear (CLEAR); Urine Color Amber (Yellow); Urobilinogen Urine 4 mg/dL (Negative); WBC Urine RARE /hpf (0-5); pH Urine 5 (5-7)
[2023-05-04] VITALS (9 sets, daily range): BP systolic 105–132; BP diastolic 50–70; PULSE 68–110; RESP 19–33; TEMP 36.6–37.1; O2SAT 90–95
[2023-05-04 05:33] LABS: Basophils % 0.2 %; Eosinophils % 0.1 %; Hematocrit 30.7 % (37-53); Lymphocytes # 0.4 10^3/uL (0.8-4.8); Lymphocytes % 2.8 %; Mean Corpuscular HGB Conc 34.2 g/dL (30-55); Mean Corpuscular Hemoglobin 29.2 pg (27-33); Mean Corpuscular Volume 85.5 fl (82-101); Mean Platelet Volume 11.5 fL (7.4-10.4); Monocytes # 0.7 10^3/uL (0.2-0.9); Monocytes % 5.2 %; Neutrophils # 12.72 10^3/uL (1.8-7.7); Neutrophils % 90.6 %; Nucleated Red Blood Cells % 0 %; Platelet Count 141 10^3/cmm (157-399); Red Blood Count 3.59 10^6/uL (3.85-5.65); Red Cell Distribution Width 15.5 % (12.1-15.1); White Blood Count 14.04 10^3/uL (3.29-11.43)
[2023-05-04 06:13] LABS: Anion Gap 13.6 (5-19); Blood Urea Nitrogen 27 mg/dL (8-23); Calcium 7.8 mg/dL (8.5-10.5); Carbon Dioxide 21 mmol/L (22-29); Chloride 101 mmol/L (98-107); Glucose 130 mg/dL (65-115); Osmolality Calculated 281 mOsm/kg (285-295); Potassium 3.6 mmol/L (3.5-5.1); Sodium 132 mmol/L (136-145)
[2023-05-04] MEDS: enoxaparin 80 mg/0.8 mL Syringe SUBCUT ×2 (06:22→17:54)
[2023-05-04] MEDS: vancomycin 1,000 MG in sodium chloride 0.9% 250 ML 250 MG IV ×2 (06:22→22:48)
--- NOTE | 2023-05-04 08:23 | PM.PN ---
Subjective Subjective: No fever after that 1 episode yesterday Patient was given septic bolus He was started on antibiotics CT scan is consistent with pneumonia Hospital-acquired we will add antipseudomonal coverage He was started on ceftriaxone and vancomycin Vitals/I&O/Wt Last Vital Signs Temp 98.6 F 05/04/23 04:00 Pulse 88 05/04/23 06:00 Resp 29 H 05/04/23 04:00 BP 132/70 05/04/23 04:00 Pulse Ox 90 05/04/23 04:00 O2 Del Method Nasal Cannula 05/04/23 04:00 O2 Flow Rate 2 05/01/23 10:30 05/03/23 05/04/23 05/04/23 22:59 06:59 14:59 Intake Total 1450 / 2740 1120 / 3860 250 / 250 Output Total 0 / 0 Balance 1450 / 2740 1120 / 3860 250 / 250 Physical Exam Narrative: Patient requiring oxygen via nasal cannula Heart rate 88 Blood pressure stable Pleasant and cooperative Lethargic Afebrile No sign of meningitis No active chest pain Data 05/04/23 04:49 05/04/23 04:49 Micro: Microbiology 05/03/23 12:22 Blood Culture - Preliminary Blood SPECIMEN COLLECTED 05/03/23 12:18 Blood Culture - Preliminary Blood SPECIMEN COLLECTED A&P Assessment and plan (1) Hospital acquired PNA: (2) Sepsis: (3) Leukocytosis: (4) Reduced ejection fraction concurrent with and due to acute heart failure: (5) HTN (hypertension): (6) Hypoxia: (7) Acute exacerbation of CHF (congestive heart failure): (8) Left ventricular apical thrombus: (9) Low vitamin B12 level: (10) D-dimer, elevated: (11) NSTEMI (non-ST elevated myocardial infarction): (12) Generalized weakness: Plan Hospital-acquired pneumonia We will do a double antipseudomonal coverage along anti-MRSA Currently requiring oxygen via nasal cannula Sepsis related pneumonia Resolving Non-STEMI: S/p coronary angiogram with staged procedure status post stent placement continue dual antiplatelet therapy for now will need Plavix and Lovenox/Eliquis at the time of discharge for left ventricle apical thrombus related to hypokinesia Will need care home placement Cardiac consistent carb diet Continue PT evaluation Low vitamin B12 continue supplementation Chronic kidney disease: Stable Patient will need LifeVest for low EF Attestations Medical Necessity Statement*: Awaiting till Saturday Diagnoses Hospital acquired PNA J18.9; Y95 Sepsis A41.9 Leukocytosis D72.829 Reduced ejection fraction concurrent with and due to acute heart failure I50.21 HTN (hypertension) I10 Hypoxia R09.02 Acute exacerbation of CHF (congestive heart failure) I50.9 Left ventricular apical thrombus I51.3 Low vitamin B12 level R79.89 D-dimer, elevated R79.89 NSTEMI (non-ST elevated myocardial infarction) I21.4 Generalized weakness R53.1
--- NOTE | 2023-05-04 08:39 | PM.PN ---
Subjective Subjective: Patient feels weak. No chest pain. Was found to have pneumonia on CT. Has been on antibiotics. WBC improved. Afebrile today. Heart rate has improved. Creatinine is stable. Vitals/I&O/Wt Last Vital Signs Temp 98.6 F 05/04/23 04:00 Pulse 88 05/04/23 08:35 Resp 24 H 05/04/23 08:35 BP 132/70 05/04/23 04:00 Pulse Ox 94 05/04/23 08:35 O2 Del Method Room Air 05/04/23 08:35 O2 Flow Rate 2 05/01/23 10:30 05/03/23 05/04/23 05/04/23 22:59 06:59 14:59 Intake Total 1450 / 2740 1120 / 3860 250 / 250 Output Total 0 / 0 Balance 1450 / 2740 1120 / 3860 250 / 250 Physical Exam Narrative: GENERAL: Patient is alert, awake and oriented x3. [] NECK: No jugular vein distension. [] HEENT: No cyanosis. No icterus. No pallor. [] HEART: Regular S1 and S2. Grade 2/6 systolic function LUNGS: Diminished air entry bilaterally. CENTRAL NERVOUS SYSTEM: Grossly nonfocal. [] EXTREMITIES: Lower extremities with 1+ edema bilaterally. Data 05/04/23 04:49 05/04/23 04:49 Micro: Microbiology 05/03/23 12:22 Blood Culture - Preliminary Blood SPECIMEN COLLECTED 05/03/23 12:18 Blood Culture - Preliminary Blood SPECIMEN COLLECTED A&P Assessment and plan (1) NSTEMI (non-ST elevated myocardial infarction): (2) Acute exacerbation of CHF (congestive heart failure): (3) Left ventricular apical thrombus: (4) HTN (hypertension): Plan Patient had PCI of mid RC with 1 stent. Distal vessel had balloon angioplasty but stent could not be advanced because of heavy calcification. Medical therapy for that. Continue antibiotics for pneumonia treatment per primary team. Continue Lovenox for now as has LV thrombus. We will stop aspirin and time of discharge. Continue plavix Thank you for involving us with care of this patient. We will continue to follow. Please call with questions. Attestations Medical Necessity Statement*: Care expected to cross 2 midnights. Coding Level of Care Code Acute Code for [facility] Diagnoses NSTEMI (non-ST elevated myocardial infarction) I21.4 Acute exacerbation of CHF (congestive heart failure) I50.9 Left ventricular apical thrombus I51.3 HTN (hypertension) I10
[2023-05-04] MEDS: aspirin 81 mg EC Tablet PO (09:43)
[2023-05-04] MEDS: pantoprazole DR 40 mg Tablet PO ×2 (09:43→17:54)
[2023-05-04] MEDS: metoprolol tartrate 25 mg Tablet PO ×2 (09:43→21:14)
[2023-05-04] MEDS: sennosides-docusate Tablet 1 TAB PO (09:43)
[2023-05-04] MEDS: sertraline 100 mg Tablet 150 MG PO ×2 (09:43→17:54)
[2023-05-04] MEDS: clopidogrel 75 mg Tablet PO (09:43)
[2023-05-04] MEDS: cefTRIAXone 1,000 MG in sodium chloride 0.9% (plus) 50 ML 100 MG IV (09:47)
[2023-05-04] MEDS: cefepime 2,000 MG in sodium chloride 0.9% (plus) 50 ML 100 MG IV ×2 (12:24→23:58)
[2023-05-04] MEDS: piperacillin-tazobactam 3.375 GM in sodium chloride 0.9% (plus) 50 ML IV ×2 (14:43→21:18)
[2023-05-05] VITALS (9 sets, daily range): BP systolic 118–137; BP diastolic 60–72; PULSE 70–88; RESP 16–26; TEMP 36.5–37.2; O2SAT 95–100
[2023-05-05 03:47] LABS: Basophils % 0.2 %; Eosinophils # 0.2 10^3/uL (0.0-0.8); Hematocrit 27.5 % (37-53); Lymphocytes % 10.4 %; Mean Corpuscular HGB Conc 34.2 g/dL (30-55); Mean Corpuscular Hemoglobin 29.5 pg (27-33); Mean Corpuscular Volume 86.2 fl (82-101); Mean Platelet Volume 12.2 fL (7.4-10.4); Monocytes # 0.8 10^3/uL (0.2-0.9); Monocytes % 7.7 %; Neutrophils # 7.66 10^3/uL (1.8-7.7); Nucleated Red Blood Cells % 0 %; Platelet Count 97 10^3/cmm (157-399); Red Blood Count 3.19 10^6/uL (3.85-5.65); Red Cell Distribution Width 15.8 % (12.1-15.1)
[2023-05-05 04:09] LABS: Anion Gap 10.3 (5-19); Blood Urea Nitrogen 23 mg/dL (8-23); Calcium 7.7 mg/dL (8.5-10.5); Carbon Dioxide 23 mmol/L (22-29); Chloride 102 mmol/L (98-107); Glucose 118 mg/dL (65-115); Osmolality Calculated 279 mOsm/kg (285-295); Potassium 3.3 mmol/L (3.5-5.1); Sodium 132 mmol/L (136-145)
[2023-05-05] MEDS: piperacillin-tazobactam 3.375 GM in sodium chloride 0.9% (plus) 50 ML IV ×3 (05:32→21:14)
[2023-05-05] MEDS: enoxaparin 80 mg/0.8 mL Syringe SUBCUT ×2 (05:35→17:42)
[2023-05-05] MEDS: pantoprazole DR 40 mg Tablet PO ×2 (08:57→17:42)
[2023-05-05] MEDS: clopidogrel 75 mg Tablet PO (08:57)
[2023-05-05] MEDS: sennosides-docusate Tablet 1 TAB PO (08:57)
[2023-05-05] MEDS: sertraline 100 mg Tablet 150 MG PO ×2 (08:57→17:42)
[2023-05-05] MEDS: metoprolol tartrate 25 mg Tablet PO ×2 (08:57→19:59)
[2023-05-05] MEDS: aspirin 81 mg EC Tablet PO (08:57)
--- NOTE | 2023-05-05 10:01 | PM.PN ---
Subjective Subjective: White count better today Afebrile Patient endorsing feeling better Family is hoping he might be able to go to a nursing facility by Saturday She will have to arrange LifeVest Sepsis related to pneumonia: Improving We will plan potassium Spoke with the family as well Patient is forgetful stating that he does not remember anything from yesterday Vitals/I&O/Wt Last Vital Signs Temp 98.9 F 05/05/23 04:00 Pulse 84 05/05/23 09:17 Resp 24 H 05/05/23 09:17 BP 133/72 05/05/23 09:17 Pulse Ox 95 05/05/23 09:17 O2 Del Method Nasal Cannula 05/05/23 09:17 O2 Flow Rate 2 05/05/23 09:17 05/04/23 05/05/23 05/05/23 23:59 06:59 14:59 Intake Total 220 / 220 Output Total Balance 220 / 220 Physical Exam Narrative: Patient is awake and alert Eating breakfast Currently on 2 L Hemodynamic stable Heart rate in 90s Euvolemic S1, S2 variable Pleasant cooperative Forgetful Nonfocal neuro exam Data 05/05/23 03:08 05/05/23 03:08 Micro: Microbiology 05/03/23 12:18 Blood Culture - Preliminary Blood NEGATIVE TO DATE 05/03/23 12:22 Blood Culture - Preliminary Blood NEGATIVE TO DATE A&P Assessment and plan (1) Sepsis: (2) Hospital acquired PNA: (3) Leukocytosis: (4) Reduced ejection fraction concurrent with and due to acute heart failure: (5) HTN (hypertension): (6) Hypoxia: (7) Acute exacerbation of CHF (congestive heart failure): (8) Left ventricular apical thrombus: (9) Low vitamin B12 level: (10) D-dimer, elevated: (11) NSTEMI (non-ST elevated myocardial infarction): (12) Generalized weakness: (13) Dementia: Plan 82-year-old male who presented with chief complaint of generalized weakness, non-STEMI ACS protocol was initiated, initial troponins were around 700, stress test was positive cardiology was consulted, first angiogram patient received 2 stents in LAD, staged procedure was done 2 days later for RCA, status post 1 stent, patient was kept on aspirin Plavix and therapeutic Lovenox because of left ventricle thrombus related to hypokinesia, patient developed sepsis related to hospital-acquired pneumonia after angiogram, patient was put on antipseudomonal anti-MRSA coverage which improved his sepsis, reduced EF patient will need LifeVest and pen[facility]entiary placement Ischemic cardiomyopathy Acute S-CHF exacerbation Patient was put on ACS protocol, cardiology was consulted after positive stress test, status post 3 stents 1RCA and 2LAD Patient will need LifeVest at discharge Continue p.o. diuretics Left ventricle thrombus related to hypokinesia We will switch patient from therapeutic Lovenox to Eliquis at the time of discharge along Plavix Low vitamin B12, low normal, continue p.o. regimen at the time of discharge Hypokalemia: Repleted Sepsis related pneumonia: Resolving, cultures negative, de-escalate antibiotics at the time of discharge Currently on antipseudomonal anti-MRSA coverage Full code Disposition: [facility] placement Patient most likely has underlying dementia he is very forgetful does not remember anything of from yesterday Cardiac diet Attestations Medical Necessity Statement*: Continue medical management Diagnoses Sepsis A41.9 Hospital acquired PNA J18.9; Y95 Leukocytosis D72.829 Reduced ejection fraction concurrent with and due to acute heart failure I50.21 HTN (hypertension) I10 Hypoxia R09.02 Acute exacerbation of CHF (congestive heart failure) I50.9 Left ventricular apical thrombus I51.3 Low vitamin B12 level R79.89 D-dimer, elevated R79.89 NSTEMI (non-ST elevated myocardial infarction) I21.4 Generalized weakness R53.1 Dementia F03.90
--- NOTE | 2023-05-05 10:37 | P.PN_ITS ---
Subjective Subjective: Patient is overall doing better. No chest pain. WBC count has normalized. Afebrile. Vitals/I&O/Wt Last Vital Signs Temp 98.9 F 05/05/23 04:00 Pulse 84 05/05/23 09:17 Resp 24 H 05/05/23 09:17 BP 133/72 05/05/23 09:17 Pulse Ox 95 05/05/23 09:17 O2 Del Method Nasal Cannula 05/05/23 09:17 O2 Flow Rate 2 05/05/23 09:17 05/04/23 05/05/23 05/05/23 23:59 06:59 14:59 Intake Total 270 / 270 Output Total Balance 270 / 270 Physical Exam Narrative: GENERAL: Patient is alert, awake and oriented x3. [] NECK: No jugular vein distension. [] HEENT: No cyanosis. No icterus. No pallor. [] HEART: Regular S1 and S2. Grade 2/6 systolic function LUNGS: Diminished air entry bilaterally. CENTRAL NERVOUS SYSTEM: Grossly nonfocal. [] EXTREMITIES: Lower extremities with 1+ edema bilaterally. Data 05/05/23 03:08 05/05/23 03:08 Micro: Microbiology 05/03/23 12:18 Blood Culture - Preliminary Blood NEGATIVE TO DATE 05/03/23 12:22 Blood Culture - Preliminary Blood NEGATIVE TO DATE A&P Assessment and plan (1) NSTEMI (non-ST elevated myocardial infarction): (2) Acute exacerbation of CHF (congestive heart failure): (3) Left ventricular apical thrombus: (4) HTN (hypertension): Plan Continue aspirin and Plavix for now. Continue anticoagulation. Can switch to Eliquis 5 mg twice daily tomorrow. We will continue Plavix with that. At time of discharge can stop aspirin. Lifevest ordered Antibiotic therapy per primary team Thank you for involving us with care of this patient. We will continue to follow. Please call with questions. Attestations Medical Necessity Statement*: Care expected to cross 2 midnights. Coding Level of Care Code Acute Code for [facility] Diagnoses NSTEMI (non-ST elevated myocardial infarction) I21.4 Acute exacerbation of CHF (congestive heart failure) I50.9 Left ventricular apical thrombus I51.3 HTN (hypertension) I10
[2023-05-05] MEDS: cyanocobalamin 1,000 mcg/mL SDV 1000 MCG IM (10:42)
[2023-05-05] MEDS: potassium chloride ER 20 mEq Tablet 40 MEQ PO (10:42)
--- NOTE | 2023-05-05 12:59 | PC.NURSE ---
Patient is rounded on and he said I have vertigo for about the last 15 minutes, the room is spinning . He has no other complaints. vitals are stable. Provider is notified and ordered meclizine TID.
[2023-05-05] MEDS: cefepime 2,000 MG in sodium chloride 0.9% (plus) 50 ML 100 MG IV ×2 (13:18→23:50)
[2023-05-05] MEDS: meclizine 25 mg tablet PO (13:18)
[2023-05-05 17:15] LABS: Vancomycin Trough 10.9 ug/mL (10-15)
[2023-05-05] MEDS: vancomycin 1,000 MG in sodium chloride 0.9% 250 ML 250 MG IV (17:42)
[2023-05-06] VITALS (10 sets, daily range): BP systolic 115–137; BP diastolic 48–72; PULSE 72–88; RESP 16–25; TEMP 36.6–37.9; O2SAT 91–98
[2023-05-06 04:32] LABS: Basophils % 0.2 %; Eosinophils # 0.2 10^3/uL (0.0-0.8); Eosinophils % 2.6 %; Hematocrit 29.8 % (37-53); Lymphocytes % 11.6 %; Mean Corpuscular HGB Conc 33.9 g/dL (30-55); Mean Corpuscular Hemoglobin 29.7 pg (27-33); Mean Corpuscular Volume 87.6 fl (82-101); Monocytes # 0.6 10^3/uL (0.2-0.9); Monocytes % 6.6 %; Neutrophils # 6.69 10^3/uL (1.8-7.7); Neutrophils % 78.4 %; Nucleated Red Blood Cells % 0 %; Platelet Count 104 10^3/cmm (157-399); Red Cell Distribution Width 15.9 % (12.1-15.1); White Blood Count 8.53 10^3/uL (3.29-11.43)
[2023-05-06 04:56] LABS: Blood Urea Nitrogen 18 mg/dL (8-23); Calcium 7.8 mg/dL (8.5-10.5); Carbon Dioxide 23 mmol/L (22-29); Chloride 104 mmol/L (98-107); Glucose 109 mg/dL (65-115); Osmolality Calculated 282 mOsm/kg (285-295); Sodium 135 mmol/L (136-145)
[2023-05-06] MEDS: enoxaparin 80 mg/0.8 mL Syringe SUBCUT (05:40)
[2023-05-06] MEDS: piperacillin-tazobactam 3.375 GM in sodium chloride 0.9% (plus) 50 ML IV ×3 (05:41→21:27)
--- NOTE | 2023-05-06 06:52 | PM.DCS ---
Discharge Providers Date of Admission: 04/28/23 15:55 Date of Discharge: May 06, 2023 Attending Provider at Admission: Arya Oliveira MD Attending Provider at Discharge: Ml Bonilla MD Diagnoses at Discharge Discharge Diagnosis (1) NSTEMI (non-ST elevated myocardial infarction): Status: Acute (2) Acute exacerbation of CHF (congestive heart failure): Status: Acute (3) Left ventricular apical thrombus: Status: Acute (4) HTN (hypertension): Status: Acute Reason for Visit Reason for Visit: fall Hospital Course Hospital Course 82-year-old male who was admitted for management evaluation of chest pain, non-STEMI, ACS was initiated at admission, stress test was positive, cardiology was consulted patient got 2 stents in LAD, patient went for a staged procedure after 48 hours for RCA, received 1 stent in RCA, patient was kept on aspirin Plavix and therapeutic Lovenox, patient also has left ventricular apical thrombus related to hypokinesia, will get Eliquis at the time of discharge along Plavix, patient has reduced ejection fraction, LifeVest has been requested, please note after angiogram patient developed fever he was diagnosed with sepsis related to hospital-acquired pneumonia his sepsis resolved with use of double antipseudomonal coverage along anti-MRSA. Cultures remain negative. Kidney function remains normal, considering recurrent falls at home related to generalized weakness and low vitamin B12 he is being discharged to a nursing facility. Physical Exam Narrative: Pleasant cooperative GCS 15 Nonfocal neuro exam Memory impairment Seems to have dementia related cognitive impairment Requiring 2 L Afebrile Hemodynamic stable Signs of fluid load improving Discharge Data Studies Completed and Pending Completed Studies During Hospitalization Category Date Time Status CT chest abdomen pelvis [[place] [id number] Cat Scan 05/03/23 15:24 Completed ] Routine CT head wo con* [id number] Urgent Cat Scan 05/01/23 17:54 Completed CTA PE [CT angio chest PE protcl [id number]] Stat Cat Scan 04/28/23 16:43 Completed [employer] request for service Routine Exams 05/01/23 08:07 Completed PRODUCTION [employer]ER request for service Routine Exams 05/03/23 07:36 Completed CXRP [XR chest 1V portable [id number]] Routine Exams 04/30/23 02:14 Completed Sestamibi Stress Test Request Routine Exams 04/28/23 18:33 Completed XR chest 1V portable [id number] Routine Exams 05/02/23 10:02 Completed XR chest 1V portable [id number] Stat Exams 04/28/23 15:05 Completed NM narayan perf SPECT r/s* [id number] Routine Nuc Med 04/29/23 18:33 [place] [id number] Routine Ultrasound 04/28/23 16:44 Completed CV. echo complete* [id number] Routine Ultrasound 04/29/23 06:00 Completed Pending at discharge Category Date Time Status Blood Culture Stat Lab 05/03/23 12:22 Results CDIFF [Clostridium Diffi Toxin Reflex] Routine Lab 05/03/23 15:23 Ordered MRSA [Methicillin Resistant S.aureu] Routine Lab 05/05/23 14:24 Received Sputum Culture and Gram Stain Routine Lab 05/03/23 10:52 Uncollected Radiology Impressions Chest CTA 04/28/23 16:43 IMPRESSION: 1. Indeterminate left upper lobe pulmonary nodule. Further evaluation or follow-up according to Fleischner society guidelines recommended. 2. No evidence of pulmonary embolism. 3. Severe coronary artery calcifications 4. Diffuse esophageal thickening. Please correlate for esophagitis or gastroesophageal reflux. REFERENCES: Mildred Thompson, et al. Guidelines for Management of Incidental Pulmonary Nodules Detected on CT Images: From the Fleischner Society 2017. Radiology. 2017;284(1):228-243. Venous Duplex 04/28/23 16:44 IMPRESSION: No evidence of deep vein thrombosis. Chest X-Ray 05/02/23 10:02 IMPRESSION: There is improving central basal aeration overall as compared to the previous study. No interval lobar consolidation or cardiac decompensation is appreciated. Chest/Abdomen/Pelvis CT 05/03/23 15:24 IMPRESSION: 1. Increased consolidation in the right lower lobe is most likely pneumonia. 2. Small ground-glass opacity in the right upper lobe is most likely pneumonia. 3. Stable 10 mm left apical nodule. For both low risk and high risk IMPRESSION: 1. No acute findings. 2. Diverticulosis of the colon. 3. Hepatosplenomegaly. COMMENTS: Consistent with the [place] [employer]'s Incidental Findings Committee white paper (J Am Vamsi Radiol 2018): Any incidental renal lesion less than 1 cm or classified as too small to characterize, or any incidental cystic renal lesion characterized as simple-appearing, is likely benign. No follow-up imaging is recommended for these lesions per consensus recommendations based on imaging criteria. Laboratory Results WBC 8.53 10^3/uL (3.29-11.43) 05/06/23 04:04 RBC 3.40 10^6/uL (3.85-5.65) L 05/06/23 04:04 Hgb 10.10 g/dL (11.27-16.99) L 05/06/23 04:04 Hct 29.8 % (37-53) L 05/06/23 04:04 MCV 87.6 fl (82-101) 05/06/23 04:04 MCH 29.7 pg (27-33) 05/06/23 04:04 MCHC 33.9 g/dL (30-55) 05/06/23 04:04 RDW 15.9 % (12.1-15.1) H 05/06/23 04:04 Plt Count 104 10^3/cmm (157-399) L 05/06/23 04:04 MPV 12.0 fL (7.4-10.4) H 05/06/23 04:04 Neut % (Auto) 78.4 % 05/06/23 04:04 Lymph % (Auto) 11.6 % 05/06/23 04:04 Forrest % (Auto) 6.6 % 05/06/23 04:04 Eos % (Auto) 2.6 % 05/06/23 04:04 Baso % (Auto) 0.2 % 05/06/23 04:04 Neut # (Auto) 6.69 10^3/uL (1.8-7.7) 05/06/23 04:04 Lymph # (Auto) 1.0 10^3/uL (0.8-4.8) 05/06/23 04:04 Forrest # (Auto) 0.6 10^3/uL (0.2-0.9) 05/06/23 04:04 Eos # (Auto) 0.2 10^3/uL (0.0-0.8) 05/06/23 04:04 Baso # (Auto) 0.0 10^3/uL (0.0-0.1) 05/06/23 04:04 Nucleated RBC % (auto) 0 % 05/06/23 04:04 Nucleated RBCs # 0.0 /100WBC 05/06/23 04:04 APTT 26.2 SECONDS (23.9-36.7) 05/03/23 12:18 D-Dimer 3.55 ug/mLFEU (0-0.59) H 04/28/23 15:14 Sodium 135 mmol/L (136-145) L 05/06/23 04:04 Potassium 4.0 mmol/L (3.5-5.1) 05/06/23 04:04 Chloride 104 mmol/L (98-107) 05/06/23 04:04 Carbon Dioxide 23 mmol/L (22-29) 05/06/23 04:04 Anion Gap 12.0 (5-19) 05/06/23 04:04 BUN 18 mg/dL (8-23) 05/06/23 04:04 Creatinine 1.2 mg/dL (0.7-1.2) 05/06/23 04:04 GFR Calculation Not Reportable 05/06/23 04:04 Glucose 109 mg/dL (65-115) 05/06/23 04:04 POC Glucose 149 mg/dL (70-110) H 05/02/23 15:05 Estimat Average Glucose 131 04/28/23 15:14 Hemoglobin A1c 6.2 % (4.0-6.0) H 04/28/23 15:14 Calculated Osmolality 282 mOsm/kg (285-295) L 05/06/23 04:04 Lactic Acid 1.2 mmol/L (0.5-2.2) 04/28/23 15:14 Lactate 1.4 mmol/L (0.5-2.2) 05/03/23 17:10 Calcium 7.8 mg/dL (8.5-10.5) L 05/06/23 04:04 Phosphorus 2.7 mg/dL (2.5-4.5) 04/29/23 04:21 Magnesium 2.0 mg/dL (1.7-2.3) 04/29/23 04:21 Total Bilirubin 1.5 mg/dL (0.15-1.2) H 04/28/23 15:14 AST 64 U/L (0-40) H 04/28/23 15:14 ALT 55 U/L (0-41) H 04/28/23 15:14 Alkaline Phosphatase 151 U/L (40-130) H 04/28/23 15:14 Troponin T Baseline 753 ng/L (0-15) H* 04/28/23 15:14 Troponin T 120 Minute 710.5 ng/L (0-15) H 04/28/23 17:10 Delta Troponin T -42.5 ABS# (0-10) L 04/28/23 17:10 Troponin T Hi Sens 6Hr 744.1 ng/L (0-15) H 04/28/23 21:34 Troponin T Hi Sens 6Hr Delta -8.9 ng/L (0-12) L 04/28/23 21:34 C-Reactive Protein 149.0 mg/L (0.0-4.9) H 05/04/23 04:49 NT-Pro-B Natriuret Pep 06175 pg/mL (0-450) H 04/28/23 15:14 Total Protein 6.0 g/dL (6.6-8.7) L 04/28/23 15:14 Albumin 3.6 g/dL (3.5-5.2) 04/28/23 15:14 Globulin 2.4 g/dL (1.3-4.6) 04/28/23 15:14 Vitamin B12 276 pg/mL (232-1245) 04/28/23 15:14 Procalcitonin 11.72 ng/mL (0-0.5) H 05/03/23 03: TSH 0.99 uIU/mL (0.27-4.20) 04/28/23 15:14 Urine Color Nikky (Yellow) 05/03/23 22:15 Urine Appearance Clear (CLEAR) 05/03/23 22:15 Urine pH 5 (5-7) 05/03/23 22:15 Ur Specific [place] 1.010 (1.005-1.030) 05/03/23 22:15 Urine Protein Trace (Negative) 05/03/23 22:15 Urine Glucose (UA) Norm (Normal) 05/03/23 22:15 Urine Ketones 1+ (Negative) H 05/03/23 22:15 Urine Blood 3+ (Negative) H 05/03/23 22:15 Urine Nitrate Negative (Negative) 05/03/23 22:15 Urine Bilirubin Neg (Negative) 05/03/23 22:15 Urine Urobilinogen 4 mg/dL (Negative) H 05/03/23 22:15 Ur Leukocyte Esterase Negative (Negative) 05/03/23 22:15 Urine RBC 5-10 /hpf (0-2) H 05/03/23 22:15 Urine WBC Rare /hpf (0-5) 05/03/23 22:15 Ur Squamous Epith Cells Rare /hpf (0-5) 05/03/23 22:15 Amorphous Sediment 1+ /hpf 05/03/23 22:15 Urine Bacteria None /hpf (NONE) 05/03/23 22:15 Hyaline Casts 5-10 /lpf H 05/02/23 11:37 Coarse Granular Casts 0-4 /lpf H 04/28/23 15:52 Urine Mucus 2+ /hpf 05/02/23 11:37 Vancomycin Trough 10.9 ug/mL (10-15) 05/05/23 16:05 Coronavirus 229E (PCR) Not detected (NOT DETECT) 05/03/23 16:00 Influenza Type A Ag negative (Negative) 04/28/23 15:25 Influenza Type B Ag negative (Negative) 04/28/23 15:25 SARS-CoV-2 (PCR) Not detected (NOT DETECT) 05/03/23 16:00 SARS-CoV-2 Ag (Rapid) negative (Negative) 05/02/23 15:20 Vitals Last Vital Signs Temp 98.1 F 05/06/23 04:27 Pulse 72 05/06/23 06:00 Resp 20 H 05/06/23 04:27 BP 115/48 05/06/23 04:27 Pulse Ox 97 05/06/23 04:27 O2 Del Method Nasal Cannula 05/06/23 04:27 O2 Flow Rate 2 05/05/23 20:00 Discharge Plan Discharge Patient Disposition: Home Health Service Condition: Stable Prescriptions: New clopidogrel 75 mg Tablet 75 mg PO DAILY Qty: 90 1RF furosemide 20 mg Tablet 20 mg PO EVERY OTHER DAY Qty: 30 0RF potassium chloride [Klor-Con M20] 20 mEq Tablet,Er Particles/Crystals 10 meq PO EVERY OTHER DAY Qty: 30 0RF Rx Instructions: with lasix every other day only meclizine 25 mg Tablet 25 mg PO TID PRN (Reason: Dizziness) Qty: 10 0RF metoprolol tartrate 25 mg Tablet 25 mg PO BID@0900,2100 Qty: 60 0RF Eliquis 5 mg tablet 5 mg PO BID Qty: 60 3RF Continued sertraline 100 mg tablet 150 mg PO BID amlodipine 10 mg tablet 10 mg PO QAM pantoprazole 40 mg tablet,delayed release (DR/EC) 40 mg PO BID azelastine 137 mcg (0.1 %) aerosol,spray 1 spray INTRANASAL BID PRN (Reason: Allergy Symptoms) Tylenol PM Extra Strength 25-500 mg Tablet 2 tab PO BEDTIME fluticasone propionate 50 mcg/actuation spray,suspension 2 spray INTRANASAL DAILY PRN (Reason: Allergy Symptoms) Discontinued lisinopril 40 mg tablet 40 mg PO QAM Other Ambulatory Orders: DME: Commode (Order) Location: None Selected Ordered By: Arya Oliveira DME: Wheelchair (Order) Location: None Selected Ordered By: Arya Oliveira Referrals: [facility] [Outside] Lokesh Bush M.D [Physician] - (Your Dr. Bush follow up appointment will be scheduled during your Berta York appointment. Thank you.) Berta York FNP [Nurse Practitioner] - 05/09/23 10:30 am Patient Instructions: Heart Failure (DC), Coronary Angioplasty (DC), CHF Stoplight, Opioid Safety, Post Angiogram Home Care Instructions, Post Heart Attack Stoplight Coding Level of Care Code Acute Code for [facility] Diagnoses NSTEMI (non-ST elevated myocardial infarction) I21.4 Acute exacerbation of CHF (congestive heart failure) I50.9 Left ventricular apical thrombus I51.3 HTN (hypertension) I10
--- NOTE | 2023-05-06 07:29 | PM.PN ---
Subjective Subjective: Patient is overall stable. No chest pain. Awaiting lifevest placement Vitals/I&O/Wt Last Vital Signs Temp 98.1 F 05/06/23 04:27 Pulse 72 05/06/23 06:00 Resp 20 H 05/06/23 04:27 BP 115/48 05/06/23 04:27 Pulse Ox 97 05/06/23 04:27 O2 Del Method Nasal Cannula 05/06/23 04:27 O2 Flow Rate 2 05/05/23 20:00 05/05/23 05/06/23 05/06/23 22:59 06:59 14:59 Intake Total 420 / 980 100 / 1080 Output Total 550 / 850 Balance -130 / 130 100 / 230 Physical Exam Narrative: GENERAL: Patient is alert, awake and oriented x3. [] NECK: No jugular vein distension. [] HEENT: No cyanosis. No icterus. No pallor. [] HEART: Regular S1 and S2. Grade 2/6 systolic function LUNGS: Diminished air entry bilaterally. CENTRAL NERVOUS SYSTEM: Grossly nonfocal. [] EXTREMITIES: Lower extremities with 1+ edema bilaterally. Data 05/06/23 04:04 05/06/23 04:04 A&P Assessment and plan (1) NSTEMI (non-ST elevated myocardial infarction): (2) Acute exacerbation of CHF (congestive heart failure): (3) Left ventricular apical thrombus: (4) HTN (hypertension): Plan Patient is overall stable. Switch to Plavix and Eliquis. Will get LifeVest today or tomorrow. Can go home after that. Thank you for involving us with care of this patient. Please call with questions. Attestations Medical Necessity Statement*: Care expected to cross 2 midnights. Coding Level of Care Code Acute Code for [facility] Diagnoses NSTEMI (non-ST elevated myocardial infarction) I21.4 Acute exacerbation of CHF (congestive heart failure) I50.9 Left ventricular apical thrombus I51.3 HTN (hypertension) I10
--- NOTE | 2023-05-06 08:34 | PC.NURSE ---
Dr. Bonilla ordered PT evaluate and treat. Order entered.
[2023-05-06] MEDS: sennosides-docusate Tablet 1 TAB PO (08:39)
[2023-05-06] MEDS: clopidogrel 75 mg Tablet PO (08:39)
[2023-05-06] MEDS: metoprolol tartrate 25 mg Tablet PO ×2 (08:39→21:27)
[2023-05-06] MEDS: aspirin 81 mg EC Tablet PO (08:39)
[2023-05-06] MEDS: pantoprazole DR 40 mg Tablet PO ×2 (08:39→17:35)
[2023-05-06] MEDS: sertraline 100 mg Tablet 150 MG PO ×2 (08:39→17:35)
[2023-05-06] MEDS: potassium chloride ER 20 mEq Tablet 40 MEQ PO (08:39)
[2023-05-06] MEDS: FUROsemide 20 mg Tablet PO (08:39)
[2023-05-06] MEDS: vancomycin 1,000 MG in sodium chloride 0.9% 250 ML 250 MG IV (11:13)
--- NOTE | 2023-05-06 12:34 | P.PN_ITS ---
Subjective Subjective: Seen this morning. Resting comfortably in bed. Awaiting LifeVest Vitals/I&O/Wt Last Vital Signs Temp 98.3 F 05/06/23 11:39 Pulse 76 05/06/23 11:39 Resp 22 H 05/06/23 11:39 BP 125/66 05/06/23 11:39 Pulse Ox 94 05/06/23 11:39 O2 Del Method Nasal Cannula 05/06/23 11:39 O2 Flow Rate 2 05/06/23 07:56 05/05/23 05/06/23 05/06/23 22:59 06:59 14:59 Intake Total 420 / 980 100 / 1080 410 / 410 Output Total 550 / 850 350 / 350 Balance -130 / 130 100 / 230 60 / 60 Physical Exam Narrative: Pleasant cooperative Lungs clear to auscultation bilaterally abdomen soft nontender Nonfocal neuro exam Memory impairment Seems to have dementia related cognitive impairment Requiring 2 L Afebrile Hemodynamic stable Appears euvolemic. Data 05/06/23 04:04 05/06/23 04:04 A&P Assessment and plan (1) Sepsis: (2) Hospital acquired PNA: (3) Leukocytosis: (4) Reduced ejection fraction concurrent with and due to acute heart failure: (5) HTN (hypertension): (6) Hypoxia: (7) Acute exacerbation of CHF (congestive heart failure): (8) Left ventricular apical thrombus: (9) Low vitamin B12 level: (10) D-dimer, elevated: (11) NSTEMI (non-ST elevated myocardial infarction): (12) Generalized weakness: (13) Dementia: Plan 82-year-old male who presented with chief complaint of generalized weakness, non-STEMI ACS protocol was initiated, initial troponins were around 700, stress test was positive cardiology was consulted, first angiogram patient received 2 stents in LAD, staged procedure was done 2 days later for RCA, status post 1 stent, patient was kept on aspirin Plavix and therapeutic Lovenox because of left ventricle thrombus related to hypokinesia, patient developed sepsis related to hospital-acquired pneumonia after angiogram, patient was put on antipseudomonal anti-MRSA coverage which improved his sepsis, reduced EF patient will need LifeVest and senior care placement Ischemic cardiomyopathy Acute S-CHF exacerbation Patient was put on ACS protocol, cardiology was consulted after positive stress test, status post 3 stents 1RCA and 2LAD Patient will need LifeVest at discharge Continue p.o. diuretics Left ventricle thrombus related to hypokinesia Stop therapeutic Lovenox today. Eliquis 5 mg twice daily to start today ? Stop aspirin at discharge. ? Plavix to continue Low vitamin B12, low normal, continue p.o. regimen at the time of discharge Hypokalemia: Repleted Sepsis related pneumonia: Resolving, cultures negative, de-escalate antibiotics at the time of discharge Currently on antipseudomonal anti-MRSA coverage Full code Disposition: residential placement Patient most likely has underlying dementia he is very forgetful does not remember anything of from yesterday Cardiac diet Awaiting LifeVest. Attestations Medical Necessity Statement*: Awaiting LifeVest. Diagnoses Sepsis A41.9 Hospital acquired PNA J18.9; Y95 Leukocytosis D72.829 Reduced ejection fraction concurrent with and due to acute heart failure I50.21 HTN (hypertension) I10 Hypoxia R09.02 Acute exacerbation of CHF (congestive heart failure) I50.9 Left ventricular apical thrombus I51.3 Low vitamin B12 level R79.89 D-dimer, elevated R79.89 NSTEMI (non-ST elevated myocardial infarction) I21.4 Generalized weakness R53.1 Dementia F03.90
[2023-05-06] MEDS: cefepime 2,000 MG in sodium chloride 0.9% (plus) 50 ML 100 MG IV (12:44)
[2023-05-06] MEDS: apixaban 5 mg Tablet PO (21:27)
[2023-05-07] VITALS (7 sets, daily range): BP systolic 125–133; BP diastolic 68–78; PULSE 68–87; RESP 16–23; TEMP 36.8–37.1; O2SAT 93–97
[2023-05-07] MEDS: cefepime 2,000 MG in sodium chloride 0.9% (plus) 50 ML 100 MG IV (00:32)
[2023-05-07] MEDS: acetaminophen 500 mg Tablet PO (00:32)
[2023-05-07] MEDS: vancomycin 1,000 MG in sodium chloride 0.9% 250 ML 250 MG IV (05:02)
[2023-05-07] MEDS: piperacillin-tazobactam 3.375 GM in sodium chloride 0.9% (plus) 50 ML IV (06:24)
--- NOTE | 2023-05-07 07:17 | P.PN_ITS ---
Subjective Subjective: Patient is doing well. Denies chest pain. Has LifeVest. Vitals/I&O/Wt Last Vital Signs Temp 98.3 F 05/07/23 04:34 Pulse 74 05/07/23 06:00 Resp 19 H 05/07/23 04:33 BP 126/68 05/07/23 04:33 Pulse Ox 93 05/07/23 04:33 O2 Del Method Nasal Cannula 05/07/23 00:00 O2 Flow Rate 2 05/06/23 07:56 05/06/23 05/07/23 05/07/23 22:59 06:59 14:59 Intake Total 511 / 1461 500 / 1961 Output Total 1435 / 2160 250 / 2410 Balance -924 / -699 250 / -449 Physical Exam Narrative: GENERAL: Patient is alert, awake and oriented x3. [] NECK: No jugular vein distension. [] HEENT: No cyanosis. No icterus. No pallor. [] HEART: Regular S1 and S2. Grade 2/6 systolic function LUNGS: Diminished air entry bilaterally. CENTRAL NERVOUS SYSTEM: Grossly nonfocal. [] EXTREMITIES: Lower extremities with 1+ edema bilaterally. Data 05/06/23 04:04 05/06/23 04:04 A&P Assessment and plan (1) NSTEMI (non-ST elevated myocardial infarction): (2) Acute exacerbation of CHF (congestive heart failure): (3) Left ventricular apical thrombus: (4) HTN (hypertension): Plan Patient is overall stable. We did have discussion with patient about antiplatelet and anticoagulation therapy. Shared decision made to continue Plavix and Eliquis. Patient has LifeVest. As outpatient we will repeat echocardiogram in 2 months to reassess LV systolic function Thank you for involving us with care of this patient. Please call with questions. Attestations 2 Medical Necessity Statement*: Care expected to cross 2 midnights Coding Level of Care Code Acute Code for [facility] Diagnoses NSTEMI (non-ST elevated myocardial infarction) I21.4 Acute exacerbation of CHF (congestive heart failure) I50.9 Left ventricular apical thrombus I51.3 HTN (hypertension) I10
[2023-05-07] MEDS: metoprolol tartrate 25 mg Tablet PO (08:40)
[2023-05-07] MEDS: sertraline 100 mg Tablet 150 MG PO (08:40)
[2023-05-07] MEDS: apixaban 5 mg Tablet PO (08:40)
[2023-05-07] MEDS: potassium chloride ER 20 mEq Tablet 40 MEQ PO (08:41)
[2023-05-07] MEDS: clopidogrel 75 mg Tablet PO (08:41)
[2023-05-07] MEDS: pantoprazole DR 40 mg Tablet PO (08:41)
[2023-05-07] MEDS: FUROsemide 20 mg Tablet PO (08:41)
[2023-05-07] MEDS: aspirin 81 mg EC Tablet PO (08:41)
[2023-05-07] MEDS: sennosides-docusate Tablet 1 TAB PO (08:41)
--- NOTE | 2023-05-07 09:58 | PM.DCS ---
Discharge Providers Date of Admission: 04/28/23 15:55 Date of Discharge: May 07, 2023 Attending Provider at Admission: Arya Oliveira MD Attending Provider at Discharge: Ml Bonilla MD Diagnoses at Discharge Discharge Diagnosis (1) NSTEMI (non-ST elevated myocardial infarction): Status: Acute (2) Acute exacerbation of CHF (congestive heart failure): Status: Acute (3) Left ventricular apical thrombus: Status: Acute (4) HTN (hypertension): Status: Acute Reason for Visit Reason for Visit: fall Hospital Course Hospital Course 82-year-old male who was admitted for management evaluation of chest pain, non-STEMI, ACS was initiated at admission, stress test was positive, cardiology was consulted patient got 2 stents in LAD, patient went for a staged procedure after 48 hours for RCA, received 1 stent in RCA, patient was kept on aspirin Plavix and therapeutic Lovenox, patient also has left ventricular apical thrombus related to hypokinesia, will get Eliquis at the time of discharge along Plavix, patient has reduced ejection fraction,Please note after angiogram patient developed fever he was diagnosed with sepsis related to hospital-acquired pneumonia his sepsis resolved with use of double antipseudomonal coverage along anti-MRSA. Cultures remain negative. Kidney function remains normal, considering recurrent falls at home related to generalized weakness and low vitamin B12 he is being discharged to a nursing facility.Patient has received his lifevest. Patient to follow up with cardiology and pcp after discharge. Physical Exam Narrative: Pleasant cooperative Lungs clear to auscultation bilaterally abdomen soft nontender Nonfocal neuro exam Memory impairment Seems to have dementia related cognitive impairment Requiring 2 L Afebrile Hemodynamic stable Appears euvolemic. Discharge Data Studies Completed and Pending Completed Studies During Hospitalization Category Date Time Status CT chest abdomen pelvis [[place] [id number] Cat Scan 05/03/23 15:24 Completed ] Routine CT head wo con* [id number] Urgent Cat Scan 05/01/23 17:54 Completed CTA PE [CT angio chest PE protcl [id number]] Stat Cat Scan 04/28/23 16:43 Completed CRISIS MANAGER request for service Routine Exams 05/01/23 08:07 Completed CRISIS MANAGER request for service Routine Exams 05/03/23 07:36 Completed CXRP [XR chest 1V portable [id number]] Routine Exams 04/30/23 02:14 Completed Sestamibi Stress Test Request Routine Exams 04/28/23 18:33 Completed XR chest 1V portable [id number] Routine Exams 05/02/23 10:02 Completed XR chest 1V portable [id number] Stat Exams 04/28/23 15:05 Completed NM narayan perf SPECT r/s* [id number] Routine Nuc Med 04/29/23 18:33 [place] [id number] Routine Ultrasound 04/28/23 16:44 Completed CV. echo complete* [id number] Routine Ultrasound 04/29/23 06:00 Completed Pending at discharge Category Date Time Status Blood Culture Stat Lab 05/03/23 12:22 Results Clostridium Difficile PCR Routine Lab 05/06/23 09:27 Received MRSA [Methicillin Resistant S.aureu] Routine Lab 05/05/23 14:24 Received Sputum Culture and Gram Stain Routine Lab 05/03/23 10:52 Uncollected Radiology Impressions Chest CTA 04/28/23 16:43 IMPRESSION: 1. Indeterminate left upper lobe pulmonary nodule. Further evaluation or follow-up according to Fleischner society guidelines recommended. 2. No evidence of pulmonary embolism. 3. Severe coronary artery calcifications 4. Diffuse esophageal thickening. Please correlate for esophagitis or gastroesophageal reflux. REFERENCES: Mildred H, et al. Guidelines for Management of Incidental Pulmonary Nodules Detected on CT Images: From the Fleischner Society 2017. Radiology. 2017;284(1):228-243. Venous Duplex 04/28/23 16:44 IMPRESSION: No evidence of deep vein thrombosis. Chest X-Ray 05/02/23 10:02 IMPRESSION: There is improving central basal aeration overall as compared to the previous study. No interval lobar consolidation or cardiac decompensation is appreciated. Chest/Abdomen/Pelvis CT 05/03/23 15:24 IMPRESSION: 1. Increased consolidation in the right lower lobe is most likely pneumonia. 2. Small ground-glass opacity in the right upper lobe is most likely pneumonia. 3. Stable 10 mm left apical nodule. For both low risk and high risk IMPRESSION: 1. No acute findings. 2. Diverticulosis of the colon. 3. Hepatosplenomegaly. COMMENTS: Consistent with the [place]'s Incidental Findings Committee white paper (J Am Vamsi Radiol 2018): Any incidental renal lesion less than 1 cm or classified as too small to characterize, or any incidental cystic renal lesion characterized as simple-appearing, is likely benign. No follow-up imaging is recommended for these lesions per consensus recommendations based on imaging criteria. Laboratory Results WBC 8.53 10^3/uL (3.29-11.43) 05/06/23 04:04 RBC 3.40 10^6/uL (3.85-5.65) L 05/06/23 04:04 Hgb 10.10 g/dL (11.27-16.99) L 05/06/23 04:04 Hct 29.8 % (37-53) L 05/06/23 04:04 MCV 87.6 fl (82-101) 05/06/23 04:04 MCH 29.7 pg (27-33) 05/06/23 04:04 MCHC 33.9 g/dL (30-55) 05/06/23 04:04 RDW 15.9 % (12.1-15.1) H 05/06/23 04:04 Plt Count 104 10^3/cmm (157-399) L 05/06/23 04:04 MPV 12.0 fL (7.4-10.4) H 05/06/23 04:04 Neut % (Auto) 78.4 % 05/06/23 04:04 Lymph % (Auto) 11.6 % 05/06/23 04:04 Andrew % (Auto) 6.6 % 05/06/23 04:04 Eos % (Auto) 2.6 % 05/06/23 04:04 Baso % (Auto) 0.2 % 05/06/23 04:04 Neut # (Auto) 6.69 10^3/uL (1.8-7.7) 05/06/23 04:04 Lymph # (Auto) 1.0 10^3/uL (0.8-4.8) 05/06/23 04:04 Andrew # (Auto) 0.6 10^3/uL (0.2-0.9) 05/06/23 04:04 Eos # (Auto) 0.2 10^3/uL (0.0-0.8) 05/06/23 04:04 Baso # (Auto) 0.0 10^3/uL (0.0-0.1) 05/06/23 04:04 Nucleated RBC % (auto) 0 % 05/06/23 04:04 Nucleated RBCs # 0.0 /100WBC 05/06/23 04:04 APTT 26.2 SECONDS (23.9-36.7) 05/03/23 12:18 D-Dimer 3.55 ug/mLFEU (0-0.59) H 04/28/23 15:14 Sodium 135 mmol/L (136-145) L 05/06/23 04:04 Potassium 4.0 mmol/L (3.5-5.1) 05/06/23 04:04 Chloride 104 mmol/L (98-107) 05/06/23 04:04 Carbon Dioxide 23 mmol/L (22-29) 05/06/23 04:04 Anion Gap 12.0 (5-19) 05/06/23 04:04 BUN 18 mg/dL (8-23) 05/06/23 04:04 Creatinine 1.2 mg/dL (0.7-1.2) 05/06/23 04:04 GFR Calculation Not Reportable 05/06/23 04:04 Glucose 109 mg/dL (65-115) 05/06/23 04:04 POC Glucose 149 mg/dL (70-110) H 05/02/23 15:05 Estimat Average Glucose 131 04/28/23 15:14 Hemoglobin A1c 6.2 % (4.0-6.0) H 04/28/23 15:14 Calculated Osmolality 282 mOsm/kg (285-295) L 05/06/23 04:04 Lactic Acid 1.2 mmol/L (0.5-2.2) 04/28/23 15:14 Lactate 1.4 mmol/L (0.5-2.2) 05/03/23 17:10 Calcium 7.8 mg/dL (8.5-10.5) L 05/06/23 04:04 Phosphorus 2.7 mg/dL (2.5-4.5) 04/29/23 04:21 Magnesium 2.0 mg/dL (1.7-2.3) 04/29/23 04:21 Total Bilirubin 1.5 mg/dL (0.15-1.2) H 04/28/23 15:14 AST 64 U/L (0-40) H 04/28/23 15:14 ALT 55 U/L (0-41) H 04/28/23 15:14 Alkaline Phosphatase 151 U/L (40-130) H 04/28/23 15:14 Troponin T Baseline 753 ng/L (0-15) H* 04/28/23 15:14 Troponin T 120 Minute 710.5 ng/L (0-15) H 04/28/23 17:10 Delta Troponin T -42.5 ABS# (0-10) L 04/28/23 17:10 Troponin T Hi Sens 6Hr 744.1 ng/L (0-15) H 04/28/23 21:34 Troponin T Hi Sens 6Hr Delta -8.9 ng/L (0-12) L 04/28/23 21:34 C-Reactive Protein 149.0 mg/L (0.0-4.9) H 05/04/23 04:49 NT-Pro-B Natriuret Pep 34959 pg/mL (0-450) H 04/28/23 15:14 Total Protein 6.0 g/dL (6.6-8.7) L 04/28/23 15:14 Albumin 3.6 g/dL (3.5-5.2) 04/28/23 15:14 Globulin 2.4 g/dL (1.3-4.6) 04/28/23 15:14 Vitamin B12 276 pg/mL (232-1245) 04/28/23 15:14 Procalcitonin 11.72 ng/mL (0-0.5) H 05/03/23 03:23 TSH 0.99 uIU/mL (0.27-4.20) 04/28/23 15:14 Urine Color Nikky (Yellow) 05/03/23 22:15 Urine Appearance Clear (CLEAR) 05/03/23 22:15 Urine pH 5 (5-7) 05/03/23 22:15 Ur Specific [place] 1.010 (1.005-1.030) 05/03/23 22:15 Urine Protein Trace (Negative) 05/03/23 22:15 Urine Glucose (UA) Norm (Normal) 05/03/23 22:15 Urine Ketones 1+ (Negative) H 05/03/23 22:15 Urine Blood 3+ (Negative) H 05/03/23 22:15 Urine Nitrate Negative (Negative) 05/03/23 22:15 Urine Bilirubin Neg (Negative) 05/03/23 22:15 Urine Urobilinogen 4 mg/dL (Negative) H 05/03/23 22:15 Ur Leukocyte Esterase Negative (Negative) 05/03/23 22:15 Urine RBC 5-10 /hpf (0-2) H 05/03/23 22:15 Urine WBC Rare /hpf (0-5) 05/03/23 22:15 Ur Squamous Epith Cells Rare /hpf (0-5) 05/03/23 22:15 Amorphous Sediment 1+ /hpf 05/03/23 22:15 Urine Bacteria None /hpf (NONE) 05/03/23 22:15 Hyaline Casts 5-10 /lpf H 05/02/23 11:37 Coarse Granular Casts 0-4 /lpf H 04/28/23 15:52 Urine Mucus 2+ /hpf 05/02/23 11:37 Vancomycin Trough 10.9 ug/mL (10-15) 05/05/23 16:05 Coronavirus 229E (PCR) Not detected (NOT DETECT) 05/03/23 16:00 Influenza Type A Ag negative (Negative) 04/28/23 15:25 Influenza Type B Ag negative (Negative) 04/28/23 15:25 SARS-CoV-2 (PCR) Not detected (NOT DETECT) 05/03/23 16:00 SARS-CoV-2 Ag (Rapid) negative (Negative) 05/02/23 15:20 Vitals Last Vital Signs Temp 98.7 F 05/07/23 08:00 Pulse 87 05/07/23 08:00 Resp 16 05/07/23 08:00 BP 125/78 05/07/23 08:00 Pulse Ox 97 05/07/23 08:00 O2 Del Method Nasal Cannula 05/07/23 08:00 O2 Flow Rate 2 05/06/23 07:56 Discharge Plan Discharge Patient Disposition: Xfer SNF Condition: Stable Prescriptions: New clopidogrel 75 mg Tablet 75 mg PO DAILY Qty: 90 1RF Klor-Con M20 20 mEq Tablet,Er Particles/Crystals 10 meq PO EVERY OTHER DAY Qty: 30 0RF Rx Instructions: with lasix every other day only meclizine 25 mg Tablet 25 mg PO TID PRN (Reason: Dizziness) Qty: 10 0RF furosemide 20 mg Tablet 20 mg PO EVERY OTHER DAY Qty: 30 0RF metoprolol tartrate 25 mg Tablet 25 mg PO BID@0900,2100 Qty: 60 0RF Eliquis 5 mg tablet 5 mg PO BID Qty: 60 3RF levofloxacin 750 mg tablet 750 mg PO DAILY 7 Days Qty: 7 0RF cyanocobalamin (vitamin B-12) 1,000 mcg capsule 1,000 mcg PO DAILY Qty: 30 0RF Continued sertraline 100 mg tablet 150 mg PO BID amlodipine 10 mg tablet 10 mg PO QAM pantoprazole 40 mg tablet,delayed release (DR/EC) 40 mg PO BID azelastine 137 mcg (0.1 %) aerosol,spray 1 spray INTRANASAL BID PRN (Reason: Allergy Symptoms) Tylenol PM Extra Strength 25-500 mg Tablet 2 tab PO BEDTIME fluticasone propionate 50 mcg/actuation spray,suspension 2 spray INTRANASAL DAILY PRN (Reason: Allergy Symptoms) Discontinued lisinopril 40 mg tablet 40 mg PO QAM Discharge Orders: Discharge Order (Routine); Ordered 05/07/23 Ordered By: Ml Bonilla Other Ambulatory Orders: DME: Commode (Order) Location: None Selected Ordered By: Arya Oliveira DME: Wheelchair (Order) Location: None Selected Ordered By: Arya Oliveira Referrals: [facility] [Outside] Lokesh Bush M.D [Physician] - (Your Dr. Bush follow up appointment will be scheduled during your Berta York appointment. Thank you.) Berta York FNP [Nurse Practitioner] - 05/09/23 10:30 am Discharge Diet: Cardiac Discharge Activity: Increase activity as tolerated Patient Instructions: Metoprolol (By mouth), Furosemide (By mouth) (Lasix), Potassium Chloride (By mouth), Meclizine (By mouth), Levofloxacin (By mouth) (Levaquin, Levaquin Leva-gt), Clopidogrel (By mouth) (Plavix), Vitamin B-12 (By mouth), Apixaban (By mouth) (Eliquis), Heart Failure (DC), Coronary Angioplasty (DC), CHF Stoplight, Opioid Safety, Post Angiogram Home Care Instructions, Post Heart Attack Stoplight Discharge Attestations Time Spent in Discharge Care*: greater than 30 min Quality Metrics Clinical Quality Measures [ No reported AMI, CVA or VTE this stay] Coding Level of Care Code 25927 Diagnoses NSTEMI (non-ST elevated myocardial infarction) I21.4 Acute exacerbation of CHF (congestive heart failure) I50.9 Left ventricular apical thrombus I51.3 HTN (hypertension) I10
--- NOTE | 2023-05-07 12:09 | PC.NURSE ---
While trying to finalize medications and adding the pharmacy to send the medications to, I went back to the discharge planning screen and found that the medications had been finalized apparently by someone else and that it did not show that the medications were transmitted. I attempted to call the pharmacy that the medications were to be transmitted to and they would not take any of the medication orders citing that they don't have any notification from the facility that this will be a pt of theirs and said that the SNF will be responsible for ordering the medications.
--- NOTE | 2023-05-07 12:20 | PC.NURSE ---
Report called to Helio Manzanares and given to BRYCE Schilling
--- NOTE | 2023-05-07 13:00 | PC.NURSE ---
Discharge Note Patient discharged to [SNF] via [w/c to [facility] transport van] accompanied by [SNF personnel]. Discharge instructions reviewed with patient and/or installation service representative. Mobile pharmacy medications and/or prescriptions provided. Belongings/home medications returned.
[2023-05-07 14:49] LABS: Methicillin-Resist S.aureu PCR NOT DETECTED (NOT DETECTED)
== END 2023-05-07 12:45 | disposition skilled nursing facility (03) | DRG 323 ==
LOC: ER 16:32 → MEDSURG 17:17 → CSU 05-01 10:27
PROVIDERS: Internal Medicine; Admitting Provider Internal Medicine; Emergency Provider Emergency Medicine; Visit Provider Internal Medicine
PROC: 027035Z Dilation of Coronary Artery, One Artery with Two Drug-eluting Intraluminal Devices, Percutaneous Approach (ICD-10-PCS; principal; 2023-05-01 08:30)
PROC: 027035Z Dilation of Coronary Artery, One Artery with Two Drug-eluting Intraluminal Devices, Percutaneous Approach (ICD-10-PCS; 2023-05-01 08:30)
DX: I21.4 Non-ST elevation (NSTEMI) myocardial infarction (principal); A41.9 Sepsis, unspecified organism; I50.21 Acute systolic (congestive) heart failure; J18.9 Pneumonia, unspecified organism; I13.0 Hypertensive heart and chronic kidney disease with heart failure and stage 1 through stage 4 chronic kidney disease, or unspecified chronic kidney disease; I23.6 Thrombosis of atrium, auricular appendage, and ventricle as current complications following acute myocardial infarction; E87.1 Hypo-osmolality and hyponatremia; N17.9 Acute kidney failure, unspecified; I25.10 Atherosclerotic heart disease of native coronary artery without angina pectoris; N18.9 Chronic kidney disease, unspecified; Y95 Nosocomial condition; E87.6 Hypokalemia; I25.5 Ischemic cardiomyopathy; E53.8 Deficiency of other specified B group vitamins; E87.70 Fluid overload, unspecified; K21.9 Gastro-esophageal reflux disease without esophagitis; F32.A Depression, unspecified
CPT/HCPCS: 36415; 36416; 70450; 71045; 71250; 71275; 74176; 78452; 80048; 80053; 80202; 81001; 81015; 82607; 82962; 83036; 83605; 83735; 83880; 84100; 84145; 84443; 84484; 85025; 85347; 85378; 85730; 86140; 87040; 87086; 87426; 87493; 87635; 87641; 87804; 93005; 93017; 93306; 93454; 93970; 96372; 96375; 96376; 97110; 97161; 97530; 99152; 99153; 99285; A9500; C1725; C1769; C1874; C1887; C1894; C9600; J0692; J0696; J1200; J1644; J1650; J1940; J2250; J2543; J2785; J3010; J3370; J3420; J3490; J7030; J7050; J7120; J8597; Q9967

== ENCOUNTER → 2023-05-15 10:23 | Outpatient (BNVA) | payer MEDICARE, SELFPAY | PROVIDERS: Visit Provider Nurse Practitioner Family | DX: I25.10 Atherosclerotic heart disease of native coronary artery without angina pectoris (principal); I25.5 Ischemic cardiomyopathy; I11.0 Hypertensive heart disease with heart failure; I50.9 Heart failure, unspecified; I25.2 Old myocardial infarction | CPT/HCPCS: 99214 ==

== ENCOUNTER 2023-07-09 09:15 | Outpatient (CLI) | payer MEDICARE, SELFPAY ==
--- NOTE | 2023-07-09 10:00 | USCV_ITS ---
Ursula Brown Age: 82 Gender: M : 1940 Exam Date: 07/09/2023 09:28 Ordering Phys: Berta York Technologist: CHRISSY [place] [facility] [place] EF FOR ICD PLACEMENT BP: 117 / 68 HR: 65 Rhythm: Sinus Technical Quality: Adequate MEASUREMENTS (Male / Female) Normal Values 2D ECHO LVOT Diameter 2.0 cm LV Ejection Fraction MOD 2C 58.0 % LV Ejection Fraction 2C AL 56.7 % LA Diameter 3.5 cm LA Width 3.3 cm LA Height 3.3 cm RA Width 3.0 cm RA Height 4.0 cm Aorta at Sinotubular Diameter 2.3 cm IVC Diameter 1.3 cm M-MODE Aortic Annulus Diameter 3.5 cm LA Ao Ratio MM 1.0 MV E Point Septal Separation 1.0 cm DOPPLER Right Atrial Pressure 3.0 mmHg FINDINGS Left Ventricle Normal left ventricular size and systolic function, EF 57 %. Mild hypokinesia of the basal inferior wall segment Right Ventricle Normal right ventricular size and systolic function. Right Atrium Normal right atrial size. Left Atrium Normal left atrial size. Mitral Valve No gross abnormalities noted Aortic Valve No gross abnormalities noted Tricuspid Valve No gross abnormalities noted Pulmonic Valve No gross abnormalities noted Pericardium No pericardial effusion. Aorta Normal aortic annulus size. IVC Normal inferior vena cava. CONCLUSIONS Normal left ventricular size and systolic function, EF 57 %. Mild hypokinesia of the basal inferior wall segment. Normal chamber sizes. No significant valvular abnormalities. No pericardial effusion. Compared to the study from 04/29/2023, there is significant improvement of the LV ejection fraction Dr Bob Caballero MD FACC (Electronically Signed) Final Date: 10 July 2023 09:23 S
== END 2023-07-09 09:16 | disposition home or self-care (01) ==
LOC: RAD 09:15
PROVIDERS: PCP Family Medicine; Visit Provider Nurse Practitioner Family
DX: I25.5 Ischemic cardiomyopathy (principal)
CPT/HCPCS: 93308

== ENCOUNTER → 2023-07-16 13:09 | Outpatient (BNVA) | payer MEDICARE, SELFPAY | PROVIDERS: PCP Family Medicine; Visit Provider Internal Medicine | DX: I25.10 Atherosclerotic heart disease of native coronary artery without angina pectoris (principal); I25.5 Ischemic cardiomyopathy; I11.0 Hypertensive heart disease with heart failure; I50.9 Heart failure, unspecified | CPT/HCPCS: 99214 ==

== ENCOUNTER 2023-09-20 15:48 | Outpatient (CLI) | payer MEDICARE, SELFPAY ==
--- NOTE | 2023-09-20 15:58 | MR_ITS ---
WS: [id number] MRI HEAD WITH CONTRAST TECHNIQUE: Sagittal T1, T2 axial, T2 axial FLAIR, axial susceptibility weighted imaging, axial diffus ion weighted images, and coronal T2 images were obtained. Pre and post-T1 axial and post T1 coronal i mages. ADC and FSPGR images. CLINICAL INFORMATION: ATAXIC GAIT COMPARISON: None. FINDINGS: No evidence of restricted diffusion to suggest acute ischemia. Ventricular system and basal cisterns are patent. Mild small vessel changes. Mild parenchymal volume loss. Small vessel changes in the iman . Normal posterior fossa. Normal vascular flow voids at the skull base. Mild mucosal thickening in th e paranasal sinuses. Mastoid air cells are evaluated. Normal posterior nasopharynx. No hemosiderin on the susceptibly weighted images. Normal optic chiasm and pituitary infundibulum. Mild symmetric atro phy temporal lobes and hippocampal formations. No abnormal gadolinium enhancement. Normal optic chias m and pituitary infundibulum. Normal dural venous sinuses.\ Mild central canal stenosis partially visualized at C3-C4 with disc osteophyte complex. This can be f urther evaluated with cervical spine MRI. IMPRESSION: 1. No evidence of restricted diffusion to suggest acute ischemia. 2. Mild small vessel changes with mild parenchymal volume loss. 3. Small vessel changes in the iman. 4. No hemosiderin on susceptibility-weighted images. 5. Mild central canal stenosis partially visualized at C3-C4 with disc osteophyte complex. This can be further evaluated with cervical spine MRI. 6. No abnormal gadolinium enhancement.
[2023-09-20] MEDS: gadobenate dimeglumine 20 mL vial IV (16:35)
== END 2023-09-20 15:49 | disposition home or self-care (01) ==
LOC: RAD 15:49
PROVIDERS: PCP Family Medicine; Visit Provider Family Medicine
DX: R26.0 Ataxic gait (principal); M48.02 Spinal stenosis, cervical region
CPT/HCPCS: 70553; A9577

== ENCOUNTER 2023-12-05 11:37 | Emergency (ER) | payer MEDICARE, SELFPAY ==
--- NOTE | 2023-12-05 11:45 | ECG_ITS ---
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 Measurements Intervals [place] Rate: 76 P: 31 MO: 185 QRS: 6 QRSD: 102 T: 51 QT: 379 QTc: 429 Interpretive Statements SINUS RHYTHM WITH OCCASIONAL VENTRICULAR PREMATURE COMPLEXES Compared to ECG 04/30/2023 02:03:00 Sinus tachycardia no longer present Intraventricular conduction delay no longer present T-wave abnormality no longer present Possible ischemia no longer present Electronically Signed On 12-05-2023 12:20:54 CDT by Lokesh Bush M.D. [email or web address]
--- NOTE | 2023-12-05 11:45 | XRR_ITS ---
PROCEDURE INFORMATION: Exam: XR Chest Exam date and time: 12/05/2023 12:02 PM Age: 83 years old Clinical indication: Pain; Angina pectoris; Additional info: Cp TECHNIQUE: Imaging protocol: Radiologic exam of the chest. Views: 1 view. COMPARISON: [place] [id number] 05/03/2023 10:25 PM FINDINGS: Lungs: There is a dense rounded opacity in the left perihilar region with strandy extension superiorly to the lateral pleural surface. This most likely represents a densely consolidated rounded pneumonia. The possibility of an underlying mass here cannot be excluded however. If patient is clinically thought to have pneumonia, recommend follow-up plain films after appropriate therapy to ensure complete resolution. If patient is not clinically thought to have pneumonia then recommend proceeding directly to CT at this time. There is minor atelectasis in the right lung base. There is elevation of the right hemidiaphragm. Pleural spaces: Unremarkable. No pleural effusion. No pneumothorax. Heart/Mediastinum: The heart size is within normal limits. Bones/joints: Patient has undergone previous lower cervical fusion not included in its entirety on this study. There are degenerative changes in both shoulders. There are degenerative changes and scoliosis in the spine. XR/XR chest 1V portable [id number] IMPRESSION: Rounded opacity left perihilar region favored to be densely consolidated round pneumonia however mass cannot completely be excluded, see above.
[2023-12-05 11:51] VITALS: BP 158/69; PULSE 76; RESP 16; TEMP 37.2; O2SAT 97
--- NOTE | 2023-12-05 12:38 | PC.PHAR ---
PT PRESENTED MED LIST-VERBALLY VERIFIED WITH PT AND SPOUSE
[2023-12-05] MEDS: cefTRIAXone 1,000 MG in sodium chloride 0.9% (plus) 50 ML 100 MG IV (12:40)
[2023-12-05] MEDS: azithromycin 500 MG in sodium chloride 0.9% 250 ML 250 MG IV (12:40)
--- NOTE | 2023-12-05 12:43 | ED_ITS ---
HPI - Chest Pain 2 General: Chief Complaint: Chest Pain Stated Complaint: Chest Pain Time Seen by Provider: 12/05/23 12:09 Mode of arrival: ambulatory Limitations: no limitations History of Present Illness: 83-year-old male states that he has been having left-sided chest pain has been sharp in nature along with shortness of breath since last night has had a slight cough as well. States pain is much worse with inspiration. Does have a low- grade fever here denies any vomiting or diarrhea. Associated symptoms: Reports dyspnea and fever(s); Deny abdominal pain, nausea or vomiting Review of Systems 2 Const: Reports: fever(s); Denies: chills, body aches or change in appetite Eyes: Denies: eye discomfort ENMT: Denies: throat pain or dental pain Card: Reports: chest pain Resp: Reports: dyspnea GI: Denies: abdominal pain, nausea, vomiting or diarrhea : Denies: dysuria Musc: Denies: neck pain or back pain Skin/Breast: Denies: rash Neuro: Denies: headache(s) PFSH ED 2 PFSH: Medical History HTN (hypertension) Coronary artery disease Dementia Sepsis Hospital acquired PNA Leukocytosis Reduced ejection fraction concurrent with and due to acute heart failure Hypoxia Acute exacerbation of CHF (congestive heart failure) Left ventricular apical thrombus Low vitamin B12 level D-dimer, elevated GERD (gastroesophageal reflux disease) NSTEMI (non-ST elevated myocardial infarction) Depressed Generalized weakness Myocardial injury Surgical History History of back surgery Social History Smoking and tobacco/nicotine status: never used tobacco/nicotine Alcohol intake: never Substance/Drug Use: never Physical Exam 2 Const: COMMON NORMALS: patient oriented x3 HENMT: COMMON NORMALS: normocephalic and atraumatic HEAD & SCALP: n ormocephalic and atraumatic Eye: COMMON NORMALS: Equal, round and reactive pupils present and EOMs intact bilaterally PUPIL: Yes Equal, round and reactive pupils present Neck/C-Spine: COMMON NORMALS: full ROM and supple Chest: COMMONS NORMALS: normal inspection of the chest Resp: COMMON NORMALS: No retractions and No use of accessory muscles OTHER: Rales noted to left lung Cardio: COMMON NORMALS: regular rate, regular rhythm and No murmurs present (Cardio) RATE: regular rate RHYTHM: regular rhythm GI: COMMON NORMALS: Normal to inspection, nondistended, normoactive bowel sounds present, Soft to palpation, non-tender and no masses PALPATION: Yes Soft to palpation Extremity: COMMON NORMALS: normal to inspection and full ROM Neuro: COMMON NORMALS: patient oriented x3, moves all extremities and no focal motor deficits Psych: COMMON NORMALS: mental status grossly normal, Normal thought process present and cooperative THOUGHT PROCESS: Normal thought process present Skin: COMMON NORMALS: no rashes or lesions noted and no wounds GENERAL SKIN EXAM: no rashes or lesions noted Course 2 Vital Signs: Vital signs: Vital Signs Temperature 99.0 F 12/05/23 11:51 Pulse Rate 65 12/05/23 16:10 Respiratory Rate 18 12/05/23 16:10 Blood Pressure 162/70 12/05/23 16:10 Pulse Oximetry 95 12/05/23 16:10 MDM - Chest Pain Medical Decision Making Patient presented with chest pain along with pain with inspiration he does have a left side pneumonia this is likely causing his pain low-grade fever here as well did give him IV antibiotics I recommended admission to him for further antibiotics he states he does not want to stay and he refuses admission he is not hypoxic here we will discharge him at this time we will start him on Levaquin for him he has any worsening symptoms he is return he is to follow-up with PCP to make sure the pneumonia resolves. Medical Records I reviewed the patient's medical records. Lab Data I reviewed the patient's lab results. 12/05/23 12:37 12/05/23 12:37 Radiology Impressions Chest X-Ray 12/05/23 11:45 IMPRESSION: Rounded opacity left perihilar region favored to be densely consolidated round pneumonia however mass cannot completely be excluded, see above. Laboratory Results WBC 10.95 10^3/uL (3.29-11.43) 12/05/23 12:37 RBC 4.13 10^6/uL (3.85-5.65) 12/05/23 12:37 Hgb 12.20 g/dL (11.27-16.99) 12/05/23 12:37 Hct 37.4 % (37-53) 12/05/23 12:37 MCV 90.6 fl (82-101) 12/05/23 12:37 MCH 29.5 pg (27-33) 12/05/23 12:37 MCHC 32.6 g/dL (30-55) 12/05/23 12:37 RDW 13.2 % (12.1-15.1) 12/05/23 12:37 Plt Count 255 10^3/cmm (157-399) 12/05/23 12:37 MPV 8.8 fL (7.4-10.4) 12/05/23 12:37 Neut % (Auto) 73.6 % 12/05/23 12:37 Lymph % (Auto) 12.1 % 12/05/23 12:37 Mcnairy % (Auto) 8.9 % 12/05/23 12:37 Eos % (Auto) 4.7 % 12/05/23 12:37 Baso % (Auto) 0.3 % 12/05/23 12:37 Neut # (Auto) 8.06 10^3/uL (1.8-7.7) H 12/05/23 12:37 Lymph # (Auto) 1.3 10^3/uL (0.8-4.8) 12/05/23 12:37 Mcnairy # (Auto) 1.0 10^3/uL (0.2-0.9) H 12/05/23 12:37 Eos # (Auto) 0.5 10^3/uL (0.0-0.8) 12/05/23 12:37 Baso # (Auto) 0.0 10^3/uL (0.0-0.1) 12/05/23 12:37 Nucleated RBC % (auto) 0 % 12/05/23 12:37 Nucleated RBCs # 0.0 /100WBC 12/05/23 12:37 PT 15.90 SECONDS (12.1-14.9) H 12/05/23 12:37 INR 1.23 (0.8-1.2) H 12/05/23 12:37 Sodium 139 mmol/L (136-145) 12/05/23 12:37 Potassium 3.7 mmol/L (3.5-5.1) 12/05/23 12:37 Chloride 100 mmol/L (98-107) 12/05/23 12:37 Carbon Dioxide 25 mmol/L (22-29) 12/05/23 12:37 Anion Gap 17.7 (5-19) 12/05/23 12:37 BUN 16 mg/dL (8-23) 12/05/23 12:37 Creatinine 1.2 mg/dL (0.7-1.2) 12/05/23 12:37 GFR Calculation Not Reportable 12/05/23 12:37 Glucose 136 mg/dL (65-115) H 12/05/23 12:37 Calculated Osmolality 291 mOsm/kg (285-295) 12/05/23 12:37 Calcium 9.3 mg/dL (8.5-10.5) 12/05/23 12:37 Total Bilirubin 0.3 mg/dL (0.15-1.2) 12/05/23 12:37 AST 20 U/L (0-40) 12/05/23 12:37 ALT 31 U/L (0-41) 12/05/23 12:37 Alkaline Phosphatase 116 U/L (40-130) 12/05/23 12:37 Troponin T Baseline 19 ng/L (0-15) H 12/05/23 12:37 Troponin T 120 Minute 18.39 ng/L (0-15) H 12/05/23 15:25 Delta Troponin T -0.61 ABS# (0-10) L 12/05/23 15:25 Total Protein 7.8 g/dL (6.6-8.7) 12/05/23 12:37 Albumin 4.0 g/dL (3.5-5.2) 12/05/23 12:37 Globulin 3.8 g/dL (1.3-4.6) 12/05/23 12:37 Lipase 15 U/L (13-60) 12/05/23 12:37 All radiology interpretation(s) finalized by discharge EKG Data EKG 1: I personally reviewed and interpreted this EKG as follows: EKG interpretation date: 12/05/23 EKG interpretation time: 11:45 Interpretation: nsr hr [address] or twave abnormalities qrs 102 qtc 410 EKG 2: I personally reviewed and interpreted this EKG as follows: EKG interpretation date: 12/05/23 EKG interpretation time: 13:40 Interpretation: nsr hr [address] or t wave abnormalities qr s102 qtc 418 Discharge Plan Discharge Patient Disposition: Home Clinical Impression: Pneumonia Qualifiers: Pneumonia type: due to unspecified organism Laterality: left Lung location: u nspecified part of lung Qualified Code(s): J18.9 - Pneumonia, unspecified organism Condition: Stable Prescriptions: New levofloxacin 750 mg tablet 750 mg PO DAILY 7 Days Qty: 7 0RF No Action sertraline 100 mg tablet 150 mg PO BID amlodipine 10 mg tablet 10 mg PO QAM pantoprazole 40 mg tablet,delayed release (DR/EC) 40 mg PO BID Tylenol PM Extra Strength 25-500 mg Tablet 2 tab PO BEDTIME clopidogrel 75 mg Tablet 75 mg PO DAILY Qty: 90 1RF furosemide 20 mg Tablet 20 mg PO EVERY OTHER DAY Qty: 30 0RF metoprolol tartrate 25 mg Tablet 25 mg PO BID@0900,2100 Qty: 60 0RF Eliquis 5 mg tablet 5 mg PO BID Qty: 60 3RF cyanocobalamin (vitamin B-12) 1,000 mcg capsule 1,000 mcg PO DAILY Qty: 30 0RF potassium chloride 10 mEq tablet extended release 10 meq PO .EVERY OTHER DAY triamcinolone acetonide 0.1 % cream 1 applic TOPICAL TID PRN (Reason: Skin Irritation) Calcium 500 500 mg calcium (1,250 mg) Tablet 500 mg PO DAILY mupirocin 2 % ointment See Rx Instructions .ROUTE .COMPLEX Rx Instructions: APPLY A SMALL AMOUNT TO THE AFFECTED AREA TOPICALLY THREE TIMES DAILY NEEDED. 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
[2023-12-05 12:48] LABS: Basophils % 0.3 %; Eosinophils # 0.5 10^3/uL (0.0-0.8); Eosinophils % 4.7 %; Hematocrit 37.4 % (37-53); Lymphocytes # 1.3 10^3/uL (0.8-4.8); Lymphocytes % 12.1 %; Mean Corpuscular HGB Conc 32.6 g/dL (30-55); Mean Corpuscular Hemoglobin 29.5 pg (27-33); Mean Corpuscular Volume 90.6 fl (82-101); Mean Platelet Volume 8.8 fL (7.4-10.4); Monocytes % 8.9 %; Neutrophils # 8.06 10^3/uL (1.8-7.7); Neutrophils % 73.6 %; Nucleated Red Blood Cells % 0 %; Platelet Count 255 10^3/cmm (157-399); Red Blood Count 4.13 10^6/uL (3.85-5.65); Red Cell Distribution Width 13.2 % (12.1-15.1); White Blood Count 10.95 10^3/uL (3.29-11.43)
[2023-12-05 13:06] LABS: INR 1.23 (0.8-1.2)
[2023-12-05 13:15] LABS: Troponin(5th) Baseline 19 ng/L (0-15)
[2023-12-05 13:31] LABS: Alanine Aminotransferase 31 U/L (0-41); Alkaline Phosphatase 116 U/L (40-130); Anion Gap 17.7 (5-19); Aspartate Amino Transferase 20 U/L (0-40); Blood Urea Nitrogen 16 mg/dL (8-23); Calcium 9.3 mg/dL (8.5-10.5); Carbon Dioxide 25 mmol/L (22-29); Chloride 100 mmol/L (98-107); Creatinine Clr Calc Pharmacy 51.0827; Globulin 3.8 g/dL (1.3-4.6); Glucose 136 mg/dL (65-115); Lipase 15 U/L (13-60); Osmolality Calculated 291 mOsm/kg (285-295); Potassium 3.7 mmol/L (3.5-5.1); Sodium 139 mmol/L (136-145); Total Bilirubin 0.3 mg/dL (0.15-1.2); Total Protein 7.8 g/dL (6.6-8.7)
[2023-12-05 13:38] VITALS: BP 132/59; PULSE 79; RESP 16; O2SAT 94
--- NOTE | 2023-12-05 13:45 | ECG_ITS ---
[facility] Test Date: 2023-12-05 Pat Name: Ursula Brown Department: Room: Gender: Male [employer] Maker: : 1940 Requested By: Neto Flores Order Number: [id number] Anastasiya MD: Lokesh Bush M.D. Measurements Intervals [place] Rate: 80 P: 31 NM: 181 QRS: 10 QRSD: 102 T: 52 QT: 382 QTc: 441 Interpretive Statements SINUS RHYTHM Compared to ECG 12/05/2023 11:45:38 Ventricular premature complex(es) no longer present Electronically Signed On 12-05-2023 16:14:52 CDT by Lokesh Bush M.D. [email or web address] [id number]
[2023-12-05 15:33] VITALS: BP 147/68; PULSE 82; RESP 16; O2SAT 95
[2023-12-05 15:51] LABS: Troponin 5 2HR 18.39 ng/L (0-15)
[2023-12-05 15:52] LABS: Troponin 5 2HR Delta -0.61 ABS# (0-10)
[2023-12-05 16:10] VITALS: BP 162/70; PULSE 65; RESP 18; O2SAT 95
[2023-12-05 16:51] VITALS: BP 162/70; PULSE 65; RESP 18; TEMP 37.2; O2SAT 95
== END 2023-12-05 16:10 | disposition home or self-care (01) ==
PROVIDERS: Emergency Provider Emergency Medicine; PCP Family Medicine
DX: J18.9 Pneumonia, unspecified organism (principal); Z79.02 Long term (current) use of antithrombotics/antiplatelets; Z79.01 Long term (current) use of anticoagulants; I11.0 Hypertensive heart disease with heart failure; I50.9 Heart failure, unspecified; I25.10 Atherosclerotic heart disease of native coronary artery without angina pectoris; F03.90 Unspecified dementia, unspecified severity, without behavioral disturbance, psychotic disturbance, mood disturbance, and anxiety; I25.2 Old myocardial infarction
CPT/HCPCS: 36415; 71045; 80053; 83690; 84484; 85025; 85610; 87040; 93005; 96365; 99285; J0456; J0696; J7050

== ENCOUNTER 2023-12-06 10:27 | Outpatient (CLI) | payer MEDICARE, SELFPAY ==
--- NOTE | 2023-12-06 11:00 | USCV_ITS ---
Ursula Brown Age: 83 Gender: M : 1940 Exam Date: 12/06/2023 11:18 Ordering Phys: Lokesh Bush M.D ([email or web address]) Technologist: Duong Perez Exam Location: [facility] – [place] Indication: lv thrombus BP: 120 / 60 HR: Rhythm: Sinus Technical Quality: Adequate MEASUREMENTS (Male / Female) Normal Values 2D ECHO LV Diastolic Diameter PLAX 5.5 cm 4.2 - 5.9 / 3.9 - 5.3 cm IVS Diastolic Thickness 1.1 cm 0.6 - 1.0 / 0.6 - 0.9 cm IVS Systolic Thickness 1.3 cm LVPW Diastolic Thickness 1.1 cm 0.6 - 1.0 / 0.6 - 0.9 cm LVPW Systolic Thickness 1.7 cm LVOT Diameter 2.1 cm LV Ejection Fraction 2D Teich 64.3 % LV Ejection Fraction MOD 2C 56.3 % LV Ejection Fraction 2C AL 57.9 % LA Diameter 3.0 cm RA Systolic Volume 4C AL 24.2 ml RA Systolic Volume 4C MOD 25.6 ml Aorta at Sinotubular Diameter 2.5 cm IVC Diameter 1.6 cm M-MODE LA Ao Ratio MM 0.5 MV E Point Septal Separation 1.5 cm AV Cusp Separation MM 1.6 cm FINDINGS Left Ventricle Right Ventricle Right Atrium Left Atrium Mitral Valve Aortic Valve Tricuspid Valve Pulmonic Valve Pericardium Aorta IVC CONCLUSIONS Limited echocardiogram performed to assess LV systolic function and LV thrombus. LV systolic function is normal with EF of 55 to 60%. No LV thrombus seen. Lokesh Bush MD (Electronically Signed) Final Date: 14 December 2023 22:51 S
[2023-12-06] MEDS: perflutren protein-a microsphr 0.22 mg/mL SDV 3 mL IV (12:21)
== END 2023-12-06 10:28 | disposition home or self-care (01) ==
LOC: RAD 10:27
PROVIDERS: PCP Family Medicine; Visit Provider Internal Medicine
DX: I25.5 Ischemic cardiomyopathy (principal); I51.3 Intracardiac thrombosis, not elsewhere classified; I50.9 Heart failure, unspecified
CPT/HCPCS: C8924; Q9956

== ENCOUNTER → 2024-01-21 13:42 | Outpatient (BNVA) | payer MEDICARE, SELFPAY | PROVIDERS: PCP Family Medicine; Visit Provider Internal Medicine | DX: I25.10 Atherosclerotic heart disease of native coronary artery without angina pectoris (principal); I25.5 Ischemic cardiomyopathy; I10 Essential (primary) hypertension | CPT/HCPCS: 99214 ==

== ENCOUNTER 2024-01-30 08:16 | Outpatient (CLI) | payer MEDICARE, SELFPAY ==
--- NOTE | 2024-01-30 08:25 | MR_ITS ---
WS: [id number] MRI CERVICAL SPINE NONCONTRAST HISTORY: CERVICAL REGION SPINAL STENOSIS COMPARISON: None available. Technique: Multiplanar, multisequence noncontrast imaging of the cervical spine. Status post anterior cervical fusion from C4-C6. Interbody spacers are fused at C4-5 and C5-6. Disc spaces are significantly narrowed with vertebral body osteophytes throughout the cervical spine. Craniocervical junction, C1 and C2 relationship, odontoid process and soft tissues are normal. C2-C3: Small foraminal osteophytes with mild bilateral foraminal stenosis. Mild facet arthritis. C3-C4: Annular disc bulge with a central disc protrusion and marked facet arthritis. Mild central wit h moderate to severe foraminal stenosis. C4-C5: Moderate bilateral facet joint arthritis with moderate foraminal stenosis. C5-C6: Osteophytic ridging encroaching upon the ventral thecal sac. Contact on the ventral thecal sac appears to be osseous related. Moderate to severe facet joint arthritis. Moderate central and bilate ral foraminal stenosis, LEFT greater than RIGHT. Stenosis he appears to be due to osteophyte disease and facet disease. C6-C7: Diffuse osteophytic ridging and annular disc bulging. Marked facet arthritis. Moderate to mansoor re central with bilateral foraminal stenosis. C7-T1: At least moderate bilateral foraminal stenosis if not severe. Mild central stenosis. T2-3: Moderate central disc protrusion. There is mild contact on the thoracic cord. Paraspinal soft tissue are normal. MR/MR cervical spin wo con* [id number] IMPRESSION: 1. Status post prior anterior cervical fusion from C4-C6. Interbody spacers ar e fused at C4-5 and C5-6. 2. Advanced degenerative disc disease with facet joint arthritis and osteophyt es resulting in multilevel stenoses. 3. C3-4: Mild central with moderate to severe foraminal stenosis with a centra l disc protrusion. 4. C4-5: Moderate foraminal stenosis. 5. C5-6: Moderate central and bilateral foraminal stenosis, LEFT greater than RIGHT predominantly due to osteophyte disease. 6. C6-7: Moderate to severe central with bilateral foraminal stenosis. 7. C7-T1: Moderate bilateral foraminal stenosis. 8. Moderate size central disc protrusion at T2-3.
== END 2024-01-30 08:17 | disposition home or self-care (01) ==
LOC: RAD 08:20
PROVIDERS: PCP Family Medicine; Visit Provider Family Medicine
DX: M48.02 Spinal stenosis, cervical region (principal); M43.22 Fusion of spine, cervical region; M47.892 Other spondylosis, cervical region; M46.94 Unspecified inflammatory spondylopathy, thoracic region; M25.78 Osteophyte, vertebrae; M99.61 Osseous and subluxation stenosis of intervertebral foramina of cervical region; M99.62 Osseous and subluxation stenosis of intervertebral foramina of thoracic region; M51.24 Other intervertebral disc displacement, thoracic region
CPT/HCPCS: 72141

== ENCOUNTER → 2024-07-21 12:22 | Outpatient (BNVA) | payer MEDICARE, SELFPAY | PROVIDERS: PCP Family Medicine; Visit Provider Internal Medicine | DX: I25.10 Atherosclerotic heart disease of native coronary artery without angina pectoris (principal); I25.5 Ischemic cardiomyopathy; I10 Essential (primary) hypertension | CPT/HCPCS: 99213 ==